=== PATIENT | female | born 1965 | race Caucasian/White ===

== ENCOUNTER → 2016-11-11 | Outpatient (CLI) | payer BC ==
[~2016-11-11] MED LIST: MELO15TA3 PO
--- NOTE | 2016-11-11 12:47 | MAMMOGRAPHY REPORT ---
BILATERAL DIGITAL SCREENING MAMMOGRAM TOMOSYNTHESIS WITH CAD: 11/11/2016 CLINICAL HISTORY: Routine screening. Patient has no complaints. TECHNIQUE: Breast tomosynthesis in addition to standard 2D mammography was performed. Current study was also evaluated with a Computer Aided Detection (CAD) system. COMPARISON: Comparison is made to exams dated: 11/10/2015 mammogram, 11/07/2014 mammogram, 10/02/2013 mammogram, 09/27/2012 mammogram, 09/22/2011 mammogram, and 09/17/2010 mammogram - [facility] [address]. BREAST COMPOSITION: There are scattered areas of fibroglandular density in both breasts. FINDINGS: No suspicious masses, calcifications, or areas of architectural distortion are noted in e ither breast. There has been no significant interval change compared to prior exams. Scattered bilat eral benign-appearing calcifications are not significantly changed. Small benign intramammary lymph nodes are again seen within bilateral upper outer quadrants. IMPRESSION: ACR BI-RADS CATEGORY 2: BENIGN There is no mammographic evidence of malignancy. A 1 year screening mammogram is recommended. The p atient will receive written notification of the results. Approximately 10% of breast cancers are not detected with mammography. A negative mammographic repor t should not delay biopsy if a clinically suggestive mass is present. Yesenia Padilla M.D. /:11/11/2016 11:05:34 Power Transformer Repairer: Radha Yanes, [facility] letter sent: Normal 1/2 BI-RADS Code: ACR BI-RADS Category 2: Benign
== END | disposition home or self-care (01) ==
LOC: C.MAMM 09:04
PROVIDERS: ATTEND Obstetrics & Gynecology
DX: Z12.31 Encounter for screening mammogram for malignant neoplasm of breast (principal)

== ENCOUNTER → 2017-02-18 | Outpatient (CLI) | payer BC | END | disposition home or self-care (01) | LOC: C.PAPS 13:39 | PROVIDERS: ATTEND Obstetrics & Gynecology | DX: Z01.419 Encounter for gynecological examination (general) (routine) without abnormal findings (principal) ==

== ENCOUNTER → 2017-11-14 | Outpatient (CLI) | payer OTHER ==
--- NOTE | 2017-11-15 13:01 | MAMMOGRAPHY REPORT ---
BILATERAL DIGITAL SCREENING MAMMOGRAM TOMOSYNTHESIS WITH CAD: 11/14/2017 CLINICAL HISTORY: Routine screening. TECHNIQUE: Breast tomosynthesis in addition to standard 2D mammography was performed. Current study was also evaluated with a Computer Aided Detection (CAD) system. COMPARISON: Comparison is made to exams dated: 11/11/2016 mammogram, 11/10/2015 mammogram, 11/07/2014 m ammogram, 10/02/2013 mammogram, 09/27/2012 mammogram, and 09/22/2011 mammogram - [facility]. BREAST COMPOSITION: There are scattered areas of fibroglandular density in both breasts. FINDINGS: There are benign-appearing calcifications in both breasts. Stable intramammary lymph nodes in the right upper outer quadrant. No suspicious mass, architectural distortion or cluster of micro calcifications is seen. IMPRESSION: ACR BI-RADS CATEGORY 1: NEGATIVE There is no mammographic evidence of malignancy. A 1 year screening mammogram is recommended. The pa tient will receive written notification of the results. Approximately 10% of breast cancers are not detected with mammography. A negative mammographic report should not delay biopsy if a clinically suggestive mass is present. Savannah Watts M.D. ay/:11/14/2017 14:39:40 Trench Shovel Operator: Jeannine WILKES(R)(M), [facility] letter sent: Normal 1/2 BI-RADS Code: ACR BI-RADS Category 1: Negative
== END | disposition home or self-care (01) ==
LOC: C.MAMM 09:08
PROVIDERS: ATTEND Obstetrics & Gynecology
DX: Z12.31 Encounter for screening mammogram for malignant neoplasm of breast (principal)

== ENCOUNTER 2018-03-27 15:12 | Inpatient (IN) | payer OTHER ==
[~2018-03-27] VITALS: Ht 152.4 cm; Wt 81.6 kg
[2018-03-27] MEDS ORDERED: SODIUM CHLORIDE 0.9% 1000ML 1,000 ML IV STA (16:30)
[2018-03-27] MEDS ORDERED: ONDANSETRON INJ 2 MG/ML 2 ML VIAL IV STA (16:30)
[2018-03-27] MEDS ORDERED: MoRPHine SULFATE 4 MG/ML 1 ML CARP\\VIAL IV STA ×2 (16:30→18:13)
[2018-03-27] MEDS ORDERED: RANITIDINE HCL 50 MG/100 ML D5W IV STA (16:50)
[2018-03-27 17:04] LABS: BASO % 0.2 %; BASO ABS # 0.02 K/uL (0-0.2); EOS % 0.5 %; EOS ABS # 0.05 K/uL (0-0.5); HEMATOCRIT 38.7 % (37-47); HEMOGLOBIN 14.1 g/dL (12.0-16.0); IG# 0.03 K/uL (0.00-0.02); LYMPH % 9.2 %; LYMPH ABS # 0.86 K/uL (1.2-3.4); MEAN CELL VOLUME 83.8 fL (80-100); MEAN CORPUSCULAR HEMOGLOBIN 30.5 pg (25-34); MEAN CORPUSCULAR HGB CONC 36.4 g/dl (32-36); MEAN PLATELET VOLUME 10.2 fL (7.4-10.4); MONO % 7.8 %; MONO ABS # 0.73 K/uL (0.11-0.59); NEUT ABS # 7.63 K/uL (1.4-6.5); PLATELET COUNT 255 K/uL (130-400); RED CELL DISTRIBUTION WIDTH SD 39.1 fL (36.4-46.3); WHITE BLOOD COUNT 9.32 K/uL (4.8-10.8)
[2018-03-27 17:17] LABS: PTT PATIENT 25.3 SECONDS (21.0-31.0)
[2018-03-27 17:22] LABS: ALBUMIN 4.2 gm/dl (3.4-5.0); ALKALINE PHOSPHATASE 47 U/L (45-117); ALT/SGPT 51 U/L (12-78); AST/SGOT 32 U/L (15-37); BLOOD UREA NITROGEN 10 mg/dl (7-18); CALCIUM 9.8 mg/dl (8.5-10.1); CARBON DIOXIDE 23 mmol/L (21-32); CREATININE 1.11 mg/dl (0.60-1.20); GLUCOSE 115 mg/dl (70-99); LIPASE 56 U/L (73-393); POTASSIUM 3.8 mmol/L (3.5-5.1); SODIUM 127 mmol/L (136-145); TOTAL PROTEIN 7.7 gm/dl (6.4-8.2)
[2018-03-27] MEDS ORDERED: PRDXLUD MT (17:25)
[2018-03-27] MEDS ORDERED: LEVO50TA6 PO (17:25)
[2018-03-27] MEDS ORDERED: [UNRECOGNIZED DRUG - OTHER] PO (17:25)
[2018-03-27] MEDS ORDERED: CHOL400T (17:25)
[2018-03-27] MEDS ORDERED: [UNRECOGNIZED DRUG - OTHER] OPR (17:25)
[2018-03-27] MEDS ORDERED: HYDR-5688 PO (17:25)
[2018-03-27] MEDS ORDERED: THIA100T10 PO (17:25)
[2018-03-27] MEDS ORDERED: OMEG10007 PO (17:25)
[2018-03-27] MEDS ORDERED: [UNRECOGNIZED DRUG - CODE] OPR (17:25)
[2018-03-27] MEDS ORDERED: CYCL1SOL OPR (17:25)
[2018-03-27] MEDS ORDERED: IBUP-103 PO (17:25)
[2018-03-27] MEDS ORDERED: CYCL0.052 OPL (17:25)
[2018-03-27] MEDS ORDERED: BISA-16 PO (17:25)
[2018-03-27] MEDS ORDERED: IBUP-1277 PO (17:28)
[2018-03-27] MEDS ORDERED: VITAMIN D PO (17:36)
[2018-03-27] MEDS ORDERED: VITAMIN B PO (17:36)
--- NOTE | 2018-03-27 17:47 | DIAGNOSTIC IMAGING REPORT ---
CHEST ONE VIEW PORTABLE CLINICAL HISTORY: CHEST PAIN dyspnea COMPARISON STUDY: No previous studies for comparison. FINDINGS: The bones soft tissues and hemidiaphragms are normal. The cardiomediastinal silhouette is normal. The lungs are clear. The pulmonary vasculature is normal. IMPRESSION: Negative chest. The above report was generated using voice recognition software. It may contain grammatical, syntax or spelling errors. Electronically signed by: Kostas Prieto M.D. 03/27/2018 5:46 PM Dictated Date/Time: 03/27/2018 5:46 PM
[2018-03-27] MEDS ORDERED: HYDROmorphone INJ 0.5 MG/0.5 ML SYR IV STA (19:35)
--- NOTE | 2018-03-27 20:45 | DIAGNOSTIC IMAGING REPORT ---
ABDOMEN COMPLETE (US) CLINICAL HISTORY: 53 years-old Female presenting with EPIGASTRIC/UPPER ABD PAIN. TECHNIQUE: Real-time grayscale and limited color Doppler ultrasound imaging of the abdomen was performed. COMPARISON: None. FINDINGS: Pancreas: Visualized portions of the pancreatic head and body normal. Liver: Normal echogenicity and echotexture. The liver measures 16.1 cm in maximal sagittal dimension. No sonographic evidence of hepatic mass. Main portal vein patent with normal directional flow. Biliary: No intrahepatic biliary ductal dilatation. Common bile duct measures up to 4 mm in diameter. Gallbladder: The gallbladder is distended with debris. Gallbladder wall top normal in thickness measuring 3 mm. Trace pericholecystic fluid may be present. Sonographic Dailey's sign positive. Spleen: Normal in echogenicity and size, measuring 11.2 cm in length. Kidneys: Normal in size and echogenicity. Right kidney measures 10.9 cm, and left kidney measures 12.1 cm. No hydronephrosis. Vasculature: Visualized portions of the IVC and abdominal aorta normal. Ascites: None. IMPRESSION: Findings raise concern for acute cholecystitis. This could be confirmed with nuclear medicine HIDA scan if clinically indicated. No biliary ductal dilatation. The report will be called/faxed according to standard departmental protocol. Electronically signed by: Florentin Schafer M.D. 03/27/2018 8:44 PM Dictated Date/Time: 03/27/2018 8:40 PM
--- NOTE | 2018-03-27 23:15 | Medical Consult ---
Consultation Date of Consultation: Mar 27, 2018. Attending Physician: Reason for Consultation: Abdominal pain History of Present Illness 53-year-old female presented to the emergency department with epigastric and right upper quadrant abdominal pain started early this morning. She is currently being treated for an amoebic I infection and was recommended to eat a high fat diet. She started having some mild discomfort over the past 1-2 days. The pain became severe this morning and woke her from sleep. She had associated nausea. No similar episodes in the past. The pain radiates to her back. Past Medical/Surgical History Eye infection Abdominal pain Hypothyroidism Possible acute cholecystitis Hyponatremia Social History Smoking Status: Never Smoker Allergies Coded Allergies: Amoxicillin (Unverified Allergy, Unknown, RASH, 03/27/18) Codeine (Unverified Adverse Reaction, Unknown, GI SYMPTOMS, 03/27/18) Home Medications Active Reported [Vitamin D3 Tab] 1 Tab PO QAM [Vitamin B12 Tabs] 1 Tab PO QAM Advil (Ibuprofen) 200 Mg Tab 200 Mg PO UD [Propamidine 1% Eye ] 1 Drop OPR Q2H Advil (Ibuprofen) 200 Mg Tab 200 Mg PO UD Dulcolax (Bisacodyl) 5 Mg Tab 2 Tab PO UD [place]-3 (Fish Oil) 1 Ea Cap 1 Cap PO QAM Restasis (Cyclosporine (Ophth)) 0.05 % Emu 1 Drop OPL BID Levothyroxine Sodium 50 Mcg Tab 1 Tab PO QAM Alvin 5MG/325MG (Acetaminophen/Hydrocodone Bitart) Tab 1-2 Tablets PO Q4- 6HOURS PRN PRN PAIN Neomycin/Polymyxin/Gramic (Wideqeth-Lhjkpg-Sdbqdqyk) 1 Tami Tami 1 Drop OPR QID Cyclopentolate Hcl 1 % Tami 1 Drop OPR QID Peridex Oral Soln (Chlorhexidine Gluconate) 480 Ml Soln 1 Drop MT Q2H [Miltefosine] 50 Mg PO TID Review of Systems 10 point review of systems negative except as above Physical Exam Date Time Temp Pulse Resp B/P (MAP) Pulse Ox O2 Delivery O2 Flow Rate FiO2 03/27/18 19:46 69 16 198/96 94 Room Air 03/27/18 18:23 66 18 163/98 100 Room Air 03/27/18 17:24 65 18 189/104 100 Room Air 03/27/18 17:06 67 03/27/18 16:57 67 18 169/108 100 Room Air 03/27/18 16:55 100 Room Air 03/27/18 16:55 Room Air 03/27/18 15:24 36.6 71 20 170/96 100 Room Air 03/27/18 15:24 100 Room Air General Appearance: WD/WN, + mild distress Head: normocephalic, atraumatic Eyes: EOMI, + pertinent finding (Right lid slightly draped and inflamed) ENT: normal ENT inspection, hearing grossly normal Neck: supple, no adenopathy, no JVD Respiratory/Chest: chest non-tender, lungs clear, normal breath sounds, no respiratory distress Cardiovascular: regular rate, rhythm, no edema, no gallop, no JVD, no murmur Abdomen/GI: normal bowel sounds, soft, no organomegaly, no pulsatile mass, + tenderness (Tender to palpation in the right upper quadrant positive Dailey sign ) Back: normal inspection, no CVA tenderness Extremities/Musculoskelatal: normal inspection, no calf tenderness, normal capillary refill, no pedal edema, normal range of motion Neurologic/Psych: 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, no motor/sensory deficits, alert, normal mood/affect, oriented x 3 Skin: normal color, warm/dry, no rash Lymphatic: no adenopathy Laboratory Results Last 24 Hours Test 03/27/18 16:45 03/27/18 19:30 03/27/18 22:59 White Blood Count 9.32 K/uL Red Blood Count 4.62 M/uL Hemoglobin 14.1 g/dL Hematocrit 38.7 % Mean Corpuscular Volume 83.8 fL Mean Corpuscular Hemoglobin 30.5 pg Mean Corpuscular Hemoglobin Concent 36.4 g/dl Platelet Count 255 K/uL Mean Platelet Volume 10.2 fL Neutrophils (%) (Auto) 82.0 % Lymphocytes (%) (Auto) 9.2 % Monocytes (%) (Auto) 7.8 % Eosinophils (%) (Auto) 0.5 % Basophils (%) (Auto) 0.2 % Neutrophils # (Auto) 7.63 K/uL Lymphocytes # (Auto) 0.86 K/uL Monocytes # (Auto) 0.73 K/uL Eosinophils # (Auto) 0.05 K/uL Basophils # (Auto) 0.02 K/uL RDW Standard Deviation 39.1 fL RDW Coefficient of Variation 13.0 % Immature Granulocyte % (Auto) 0.3 % Immature Granulocyte # (Auto) 0.03 K/uL Prothrombin Time 10.2 SECONDS Prothromb Time International Ratio 1.0 Activated Partial Thromboplast Time 25.3 SECONDS Partial Thromboplastin Ratio 1.0 D-Dimer 380 ug/L FEU Sodium Level 127 mmol/L Potassium Level 3.8 mmol/L Chloride Level 93 mmol/L Carbon Dioxide Level 23 mmol/L Anion Gap 11.0 mmol/L Blood Urea Nitrogen 10 mg/dl Creatinine 1.11 mg/dl Est Creatinine Clear Calc Drug Dose 53.6 ml/min Estimated GFR () 64.7 Estimated GFR (Non- 55.9 BUN/Creatinine Ratio 8.8 Random Glucose 115 mg/dl Calcium Level 9.8 mg/dl Total Bilirubin 0.9 mg/dl Direct Bilirubin 0.2 mg/dl Aspartate Amino Transf (AST/SGOT) 32 U/L Alanine Aminotransferase (ALT/SGPT) 51 U/L Alkaline Phosphatase 47 U/L Total Creatine Kinase 77 U/L Troponin I < 0.015 ng/ml < 0.015 ng/ml Total Protein 7.7 gm/dl Albumin 4.2 gm/dl Lipase 56 U/L ABDOMEN COMPLETE (US) CLINICAL HISTORY: 53 years-old Female presenting with EPIGASTRIC/UPPER ABD PAIN. TECHNIQUE: Real-time grayscale and limited color Doppler ultrasound imaging of the abdomen was performed. COMPARISON: None. FINDINGS: Pancreas: Visualized portions of the pancreatic head and body normal. Liver: Normal echogenicity and echotexture. The liver measures 16.1 cm in maximal sagittal dimension. No sonographic evidence of hepatic mass. Main portal vein patent with normal directional flow. Biliary: No intrahepatic biliary ductal dilatation. Common bile duct measures up to 4 mm in diameter. Gallbladder: The gallbladder is distended with debris. Gallbladder wall top normal in thickness measuring 3 mm. Trace pericholecystic fluid may be present. Sonographic Dailey's sign positive. Spleen: Normal in echogenicity and size, measuring 11.2 cm in length. Kidneys: Normal in size and echogenicity. Right kidney measures 10.9 cm, and left kidney measures 12.1 cm. No hydronephrosis. Vasculature: Visualized portions of the IVC and abdominal aorta normal. Ascites: None. IMPRESSION: Findings raise concern for acute cholecystitis. This could be confirmed with nuclear medicine HIDA scan if clinically indicated. No biliary ductal dilatation. The report will be called/faxed according to standard departmental protocol. Assessment & Plan 53-year-old female with likely acute cholecystitis. She currently has hypertension, and hyponatremia we recommend admission to the medical service for preop risk assessment and medical optimization prior to any surgical intervention. We will reassess in the morning and likely plan for laparoscopic cholecystectomy with possible cholangiogram tomorrow. Recommend medical admission Plan for likely laparoscopic cholecystectomy with possible cholangiogram tomorrow Risks were discussed to include but not limited to bleeding, infection, conversion to open, damage to surrounding structures including common bile duct , need for future more extensive surgery, failure to treat symptoms, retained stone, bile leak, and the risks of anesthesia Recommend antibiotics, clear liquids until midnight, n.p.o. after midnight with IV fluids Plan of care as discussed the patient, all questions were answered, the patient expressed understanding agrees the plan of care as stated.
[2018-03-28] VITALS (7 sets, daily range): BP systolic 128–179; BP diastolic 79–108; PULSE 58–90; TEMP 36.5–36.9; O2SAT 96–99; Ht 152.4 cm; Wt 81.6 kg
[2018-03-28] MEDS ORDERED: POLYETHYLENE (MIRALAX) 17 GM PACK PO PRN
[2018-03-28] MEDS ORDERED: ACETAMINOPHEN 325 MG TAB PO PRN
[2018-03-28] MEDS ORDERED: ALUMINUM/MAGNESIUM/SIMETH (MAALOX MAX) 30 ML UDC PO PRN
[2018-03-28] MEDS ORDERED: MAGNESIUM HYDROXIDE SUSP 30 ML UDC PO PRN
--- NOTE | 2018-03-28 00:12 | EMERGENCY ROOM VISIT NOTE ---
History First contact with patient: 16:20 Chief Complaint: CHEST PAIN Stated Complaint: CHEST PAIN Nursing Triage Summary: Pt thought she had indigestion at 4am, "Alexandra been playing with it all day." CP has worsened in the last 4 hours. Denies cardiac history. Pain radiates into back. History of Present Illness The patient is a 53 year old female who presents to the Emergency Room with complaints of epigastric pain that awakened her at 4 AM this morning. The patient reports nausea without vomiting. She describes it as a constant pain that radiates into the back. It is not a tearing sensation. She denies any pain extending into the chest or lower abdomen. She has not noticed any melanotic or bloody stools. She denies history of GI disease. She is status post appendectomy. She denies any prior history of gallbladder disease or pancreatitis. She does have a prior history of GERD, but reports that this pain feels different. 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 She has been taking Impavido, and antiparasitic medication for the past 4 weeks. She reports that her gas station operator, Dr. Cruz, did recently check some labs that were normal. She rates her discomfort a 10 out of 10 on my exam. Review of Systems HEENT: Denies dizziness, visual problems, hearing loss, tinnitus. Denies difficulty swallowing or oral lesions. PULMONARY: Denies cough, shortness of breath, sputum production or hemoptysis. CARDIOVASCULAR: Denies chest pain, palpitations, dyspnea on exertion, orthopnea or peripheral edema. GASTROINTESTINAL: Denies diarrhea, constipation or vomiting, otherwise see HPI. GENITOURINARY: Denies dysuria, frequency, urgency or nocturia. NEUROLOGIC: Denies history of epilepsy, CVA, TIA or chronic headaches. MUSCULOSKELETAL: Denies history of joint tenderness/swelling. SKIN: Denies rashes or lesions. PSYCHIATRIC: Denies history of depression or mental illness. ENDOCRINE: Denies history of diabetes or thyroid disorders. 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 Family History Unremarkable Social History Smoking Status: Never Smoker Alcohol Use: none Marital Status: Occupation Status: employed Current/Historical Medications Scheduled Bisacodyl (Dulcolax), 2 TAB PO UD Chlorhexidine Gluconate (Peridex Oral Soln), 1 DROP MT Q2H Cyclopentolate Hcl (Cyclopentolate Hcl), 1 DROP OPR QID Cyclosporine (Ophth) (Restasis), 1 DROP OPL BID Fish Oil ([place]-3), 1 CAP PO QAM Ibuprofen (Advil), 200 MG PO UD Ibuprofen Tab (Advil), 200 MG PO UD Levothyroxine Sodium (Levothyroxine Sodium), 1 TAB PO QAM Pgdmsyzk-Jsgvmt-Komnloqj (Neomycin/Polymyxin/Gramic), 1 DROP OPR QID [Miltefosine], 50 MG PO TID [Propamidine 1% Eye ], 1 DROP OPR Q2H [Vitamin B12 Tabs], 1 TAB PO QAM [Vitamin D3 Tab], 1 TAB PO QAM Scheduled PRN Hydrocodone/Acetaminophen 5MG/325MG ([place] 5MG/325MG), 1-2 TABLETS PO Q4-6HOURS PRN for Pain Physical Exam Vital Signs Date Time Temp Pulse Resp B/P (MAP) Pulse Ox O2 Delivery O2 Flow Rate FiO2 03/27/18 23:04 172/97 03/27/18 23:00 83 20 03/27/18 22:31 181/100 03/27/18 22:30 77 98 03/27/18 22:01 159/105 03/27/18 22:00 81 99 03/27/18 21:31 164/101 03/27/18 21:30 71 97 03/27/18 21:01 183/102 03/27/18 21:00 76 97 03/27/18 20:52 172/101 03/27/18 19:46 69 16 198/96 94 Room Air 03/27/18 18:23 66 18 163/98 100 Room Air 03/27/18 17:24 65 18 189/104 100 Room Air 03/27/18 17:06 67 03/27/18 16:57 67 18 169/108 100 Room Air 03/27/18 16:55 100 Room Air 03/27/18 16:55 Room Air 03/27/18 15:24 36.6 71 20 170/96 100 Room Air 03/27/18 15:24 100 Room Air Physical Exam CONSTITUTIONAL: Healthy and well nourished. Alert and oriented X 3 with positive affect. Patient appears in moderately severe discomfort. HEENT: Normocephalic, atraumatic. Pupils equal, round and reactive. Patient has a right lid lag. No scleral icterus or conjunctival injection. Ears and nares are clear. OROPHARYNX: Mucous membranes are dry. No tonsillar hypertrophy or exudates. NECK: Full active range of motion without discomfort. No JVD or carotid bruits. RESPIRATORY: Clear to auscultation bilaterally with no wheezing, crackles, rhonchi or stridor. CARDIOVASCULAR: Regular rate and rhythm with no murmurs, rubs or gallops. GASTROINTESTINAL: Bowel sounds present in all quadrants. Patient has diffuse epigastric and right upper quadrant tenderness to palpation. No rigidity, guarding or rebound. Negative CVA tenderness. No focal left sided or left lower quadrant tenderness to palpation. MUSCULOSKELETAL: Full range of motion of all joints without discomfort. INTEGUMENTARY: No rash or other significant dermatologic conditions noted. HEMATOLOGIC: No ecchymosis or petechiae. NEUROLOGIC: Cranial nerves II-XII grossly intact. No focal neurologic deficits noted. Medical Decision & Procedures ER Provider Diagnostic Interpretation: My interpretation of an initial ECG shows a sinus rhythm of [address] elevation. Repeat ECG performed 4 hours after the initial ECG continued to show a normal sinus rhythm of [address] elevation or other conduction abnormalities. My interpretation of a portable chest x-ray does not show any consolidations, pneumothorax obvious abdominal free air or widened mediastinum. Radiologist report is as follows: CHEST ONE VIEW PORTABLE CLINICAL HISTORY: CHEST PAIN dyspnea COMPARISON STUDY: No previous studies for comparison. FINDINGS: The bones soft tissues and hemidiaphragms are normal. The cardiomediastinal silhouette is normal. The lungs are clear. The pulmonary vasculature is normal. IMPRESSION: Negative chest. Abdominal ultrasound shows mild pericholecystic fluid and gallbladder wall thickening. Lumen debris is also noted. Common bile duct is normal. Radiologist report is as follows: ABDOMEN COMPLETE (US) CLINICAL HISTORY: 53 years-old Female presenting with EPIGASTRIC/UPPER ABD PAIN. TECHNIQUE: Real-time grayscale and limited color Doppler ultrasound imaging of the abdomen was performed. COMPARISON: None. FINDINGS: Pancreas: Visualized portions of the pancreatic head and body normal. Liver: Normal echogenicity and echotexture. The liver measures 16.1 cm in maximal sagittal dimension. No sonographic evidence of hepatic mass. Main portal vein patent with normal directional flow. Biliary: No intrahepatic biliary ductal dilatation. Common bile duct measures up to 4 mm in diameter. Gallbladder: The gallbladder is distended with debris. Gallbladder wall top normal in thickness measuring 3 mm. Trace pericholecystic fluid may be present. Sonographic Dailey's sign positive. Spleen: Normal in echogenicity and size, measuring 11.2 cm in length. Kidneys: Normal in size and echogenicity. Right kidney measures 10.9 cm, and left kidney measures 12.1 cm. No hydronephrosis. Vasculature: Visualized portions of the IVC and abdominal aorta normal. Ascites: None. IMPRESSION: Findings raise concern for acute cholecystitis. This could be confirmed with nuclear medicine HIDA scan if clinically indicated. No biliary ductal dilatation. Laboratory Results 03/27/18 16:45 Red Blood Count 4.62, Mean Corpuscular Volume 83.8, Mean Corpuscular Hemoglobin 30.5, Mean Corpuscular Hemoglobin Concent 36.4, Mean Platelet Volume 10.2, Neutrophils (%) (Auto) 82.0, Lymphocytes (%) (Auto) 9.2, Monocytes (%) (Auto) 7.8, Eosinophils (%) (Auto) 0.5, Basophils (%) (Auto) 0.2, Neutrophils # (Auto) 7.63, Lymphocytes # (Auto) 0.86, Monocytes # (Auto) 0.73, Eosinophils # (Auto) 0.05, Basophils # (Auto) 0.02 03/27/18 16:45 Test 03/27/18 16:45 03/27/18 19:30 White Blood Count 9.32 K/uL (4.8-10.8) Red Blood Count 4.62 M/uL (4.2-5.4) Hemoglobin 14.1 g/dL (12.0-16.0) Hematocrit 38.7 % (37-47) Mean Corpuscular Volume 83.8 fL (80-100) Mean Corpuscular Hemoglobin 30.5 pg (25-34) Mean Corpuscular Hemoglobin Concent 36.4 g/dl (32-36) Platelet Count 255 K/uL (130-400) Mean Platelet Volume 10.2 fL (7.4-10.4) Neutrophils (%) (Auto) 82.0 % Lymphocytes (%) (Auto) 9.2 % Monocytes (%) (Auto) 7.8 % Eosinophils (%) (Auto) 0.5 % Basophils (%) (Auto) 0.2 % Neutrophils # (Auto) 7.63 K/uL (1.4-6.5) Lymphocytes # (Auto) 0.86 K/uL (1.2-3.4) Monocytes # (Auto) 0.73 K/uL (0.11-0.59) Eosinophils # (Auto) 0.05 K/uL (0-0.5) Basophils # (Auto) 0.02 K/uL (0-0.2) RDW Standard Deviation 39.1 fL (36.4-46.3) RDW Coefficient of Variation 13.0 % (11.5-14.5) Immature Granulocyte % (Auto) 0.3 % Immature Granulocyte # (Auto) 0.03 K/uL (0.00-0.02) Prothrombin Time 10.2 SECONDS (9.0-12.0) Prothromb Time International Ratio 1.0 (0.9-1.1) Activated Partial Thromboplast Time 25.3 SECONDS (21.0-31.0) Partial Thromboplastin Ratio 1.0 D-Dimer 380 ug/L FEU (0-500) Anion Gap 11.0 mmol/L (3-11) Est Creatinine Clear Calc Drug Dose 53.6 ml/min Estimated GFR () 64.7 Estimated GFR (Non- 55.9 BUN/Creatinine Ratio 8.8 (10-20) Osmolality 269 mOsm/kg (280-300) Calcium Level 9.8 mg/dl (8.5-10.1) Total Bilirubin 0.9 mg/dl (0.2-1) Direct Bilirubin 0.2 mg/dl (0-0.2) Aspartate Amino Transf (AST/SGOT) 32 U/L (15-37) Alanine Aminotransferase (ALT/SGPT) 51 U/L (12-78) Alkaline Phosphatase 47 U/L (45-117) Total Creatine Kinase 77 U/L (26-192) Total Protein 7.7 gm/dl (6.4-8.2) Albumin 4.2 gm/dl (3.4-5.0) Lipase 56 U/L (73-393) Troponin I < 0.015 ng/ml (0-0.045) The above labs were reviewed. Sodium is 127. Patient has no leukocytosis. Lipase and troponin 2 were normal. LFTs and lipase are normal. D-dimer is normal. Medications Administered Medications (Trade) Dose Ordered Sig/Raisa Route Start Time Stop Time Status Last Admin Dose Admin Sodium Chloride 1,000 ml @ 999 mls/hr Q1H1M STAT IV 03/27/18 16:30 03/27/18 17:30 DC 03/27/18 16:52 999 MLS/HR Morphine Sulfate (MoRPHine SULFATE INJ) 4 mg NOW STAT IV 03/27/18 16:30 03/27/18 16:33 DC 03/27/18 16:52 4 MG Ondansetron HCl (Zofran Inj) 4 mg NOW STAT IV 03/27/18 16:30 03/27/18 16:33 DC 03/27/18 16:52 4 MG Ranitidine HCl (zANTac IV) 50 mg NOW STAT IV 03/27/18 16:50 03/27/18 16:51 DC 03/27/18 17:22 50 MG Morphine Sulfate (MoRPHine SULFATE INJ) 4 mg NOW STAT IV 03/27/18 18:13 03/27/18 18:14 DC 03/27/18 18:22 4 MG Hydromorphone HCl (Dilaudid Inj) 0.5 mg NOW STAT IV 03/27/18 19:35 03/27/18 19:36 DC 03/27/18 19:45 0.5 MG Procedure 1. IV hydration: The patient was administered a normal saline 1 L bolus 2. IV medications: The patient was initially administered morphine 4 mg, Zofran 4 mg and Zantac 50 mg IVP. This did not provide much relief, and the patient was administered an additional morphine 4 mg IVP. With recurring pain, the patient was then administered Dilaudid 0.5 mg IVP. She refused any antiemetics. ED Course Patient history and physical exam were performed. Nurse's notes were reviewed. Vital signs were reviewed and were normal. The patient appeared in severe distress on initial exam. IV access was established, and labs were drawn. ECG and portable chest x-ray were normal. Labs were reviewed to show a hyponatremia. Otherwise she has no leukocytosis. Hyponatremia is noted. The patient was unable to provide a urine sample. ECG and troponin were to repeated 4 hours apart without any changes. D-dimer was also normal. LFTs and lipase are normal. At this point, abdominal ultrasound was ordered to show evidence for possible acute cholecystitis. The patient did require several rounds of morphine and Dilaudid for pain, and was still in significant discomfort with nausea. I did discuss ultrasound results with the patient and . I did explain some of the triggers for biliary colic. The reports that their gas station operator suggested that she eat a high fat diet with the medications that she is taking for her Acanthamoeba eye infection. The case was further discussed with Dr. Mireles, ED attending physician, who agrees with workup and suggest a consultation with the hospitalist service and Dr. Schulz, general surgeon sales commissions analyst. The case was discussed with Dr. Schulz , who reviewed ultrasound and laboratory findings, and suggested hospitalist admission. They did come to the emergency department and evaluated the patient , suggesting surgical management tomorrow with hospitalist evaluation of hyponatremia. Please see their dictations for further treatment and final disposition. Medical Decision Patient presents to the emergency department with complaint of severe epigastric and right upper quadrant pain. Her labs are showing a hyponatremia without evidence for elevated liver transaminases or lipase. ECG, chest x-ray and cardiac enzymes were normal, with repeat of ECG and enzymes 4 hours apart. I do not suspect myocardial infarction. Chest ray does not suggest pneumothorax or pneumonia. D-dimer is normal, therefore I do not feel the pulmonary embolus is likely. Ultrasound does show evidence for pericholecystic fluid and debris within the gallbladder, with findings concerning for acute cholecystitis. HIDA scan was recommended for confirmation. Surgical intervention with cholangiogram is currently being planned for tomorrow. The patient was unable to provide a urine sample to rule out urinary tract etiology , although I do not suspect renal colic or pyelonephritis. [place] Drug Monitoring Program Search Results: patient reviewed within database, no issues identified Medication Reconcilliation Current Medication List: was personally reviewed by me Blood Pressure Screening Patient's blood pressure: Normal blood pressure Impression Primary Impression: Epigastric abdominal pain Additional Impression: Hyponatremia Departure Information Referrals Colton Leonard M.D. (PCP) Patient Instructions [facility] Problem Qualifiers
--- NOTE | 2018-03-28 00:29 | History and Physical ---
History & Physical Date & Time of Service: Mar 28, 2018 at 00:12 Chief Complaint: Chest Pain Primary Care Physician: Colton Leonard M.D. History of Present Illness Source: patient, hospital records Patient is a 53 year old female with a PMH of hypothyroidism that presented to [facility] with abdominal pain and vomiting She says her abdominal pain started at 4am and woke her from her sleep. It is located in her upper abdomen and now she feels it is worst in her RUQ. She says it is a sharp pain that comes and goes. She rates it as a 9/10 in severity. It has been associated with vomiting and nausea. She has had the pain ever since then therefore she came to the emergency department. She notes she has had chills but no fevers. She denies any dysuria, diarrhea, blood in her stool. She has been eating a high fat diet recently due to a medication she is taking for an ameobic infection in her R eye. She has never had biliary colic prior to this episode. 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 Surgical Problems: (1) History of appendectomy Family History No family hx of cholecystitis Social History Smoking Status: Never Smoker Smokeless Tobacco Use: No Alcohol Use: occasionally Drug Use: none Marital Status: Housing status: lives with family Immunizations History of Influenza Vaccine: Unknown History of Tetanus Vaccine?: Unknown History of Pneumococcal: Unknown History of Hepatitis B Vaccine: Unknown Allergies Coded Allergies: Amoxicillin (Unverified Allergy, Unknown, RASH, 03/27/18) Codeine (Unverified Adverse Reaction, Unknown, GI SYMPTOMS, 03/27/18) Home Medications Scheduled Bisacodyl (Dulcolax), 2 TAB PO UD Chlorhexidine Gluconate (Peridex Oral Soln), 1 DROP MT Q2H Cyclopentolate Hcl (Cyclopentolate Hcl), 1 DROP OPR QID Cyclosporine (Ophth) (Restasis), 1 DROP OPL BID Fish Oil ([place]-3), 1 CAP PO QAM Ibuprofen (Advil), 200 MG PO UD Ibuprofen Tab (Advil), 200 MG PO UD Levothyroxine Sodium (Levothyroxine Sodium), 1 TAB PO QAM Hwafgmea-Bphhdu-Wacustvw (Neomycin/Polymyxin/Gramic), 1 DROP OPR QID [Miltefosine], 50 MG PO TID [Propamidine 1% Eye ], 1 DROP OPR Q2H [Vitamin B12 Tabs], 1 TAB PO QAM [Vitamin D3 Tab], 1 TAB PO QAM Scheduled PRN Hydrocodone/Acetaminophen 5MG/325MG ([place] 5MG/325MG), 1-2 TABLETS PO Q4-6HOURS PRN for Pain Review of Systems 10 systems were reviewed and negative except as noted in the HPI Physical Exam Vital Signs Date Time Temp Pulse Resp B/P (MAP) Pulse Ox O2 Delivery O2 Flow Rate FiO2 03/27/18 23:04 172/97 03/27/18 23:00 83 20 03/27/18 22:31 181/100 03/27/18 22:30 77 98 03/27/18 22:01 159/105 03/27/18 22:00 81 99 03/27/18 21:31 164/101 03/27/18 21:30 71 97 03/27/18 21:01 183/102 03/27/18 21:00 76 97 03/27/18 20:52 172/101 03/27/18 19:46 69 16 198/96 94 Room Air 03/27/18 18:23 66 18 163/98 100 Room Air 03/27/18 17:24 65 18 189/104 100 Room Air 03/27/18 17:06 67 03/27/18 16:57 67 18 169/108 100 Room Air 03/27/18 16:55 100 Room Air 03/27/18 16:55 Room Air 03/27/18 15:24 36.6 71 20 170/96 100 Room Air 03/27/18 15:24 100 Room Air General Appearance: + mild distress Eyes: + pertinent finding (R eye closed shut due to infection) ENT: hearing grossly normal, pharynx normal, + pertinent finding (dry mucous membranes) Neck: supple, no JVD Respiratory/Chest: lungs clear, no respiratory distress, no accessory muscle use Cardiovascular: regular rate, rhythm, no murmur, normal peripheral pulses Abdomen/GI: normal bowel sounds, + tenderness (very tender throughout, worst in the RUQ) Back: normal inspection, no muscle spasm Extremities/Musculoskelatal: normal inspection, no calf tenderness, no pedal edema Neurologic/Psych: alert, normal mood/affect, oriented x 3 Skin: normal color, no rash Diagnostics Laboratory Results Results Past 24 Hours Test 03/27/18 16:45 03/27/18 19:30 Range/Units White Blood Count 9.32 4.8-10.8 K/uL Red Blood Count 4.62 4.2-5.4 M/uL Hemoglobin 14.1 12.0-16.0 g/dL Hematocrit 38.7 37-47 % Mean Corpuscular Volume 83.8 80-100 fL Mean Corpuscular Hemoglobin 30.5 25-34 pg Mean Corpuscular Hemoglobin Concent 36.4 32-36 g/dl Platelet Count 255 130-400 K/uL Mean Platelet Volume 10.2 7.4-10.4 fL Neutrophils (%) (Auto) 82.0 % Lymphocytes (%) (Auto) 9.2 % Monocytes (%) (Auto) 7.8 % Eosinophils (%) (Auto) 0.5 % Basophils (%) (Auto) 0.2 % Neutrophils # (Auto) 7.63 1.4-6.5 K/uL Lymphocytes # (Auto) 0.86 1.2-3.4 K/uL Monocytes # (Auto) 0.73 0.11-0.59 K/uL Eosinophils # (Auto) 0.05 0-0.5 K/uL Basophils # (Auto) 0.02 0-0.2 K/uL RDW Standard Deviation 39.1 36.4-46.3 fL RDW Coefficient of Variation 13.0 11.5-14.5 % Immature Granulocyte % (Auto) 0.3 % Immature Granulocyte # (Auto) 0.03 0.00-0.02 K/uL Prothrombin Time 10.2 9.0-12.0 SECONDS Prothromb Time International Ratio 1.0 0.9-1.1 Activated Partial Thromboplast Time 25.3 21.0-31.0 SECONDS Partial Thromboplastin Ratio 1.0 D-Dimer 380 0-500 ug/L FEU Sodium Level 127 136-145 mmol/L Potassium Level 3.8 3.5-5.1 mmol/L Chloride Level 93 98-107 mmol/L Carbon Dioxide Level 23 21-32 mmol/L Anion Gap 11.0 3-11 mmol/L Blood Urea Nitrogen 10 7-18 mg/dl Creatinine 1.11 0.60-1.20 mg/dl Est Creatinine Clear Calc Drug Dose 53.6 ml/min Estimated GFR () 64.7 Estimated GFR (Non- 55.9 BUN/Creatinine Ratio 8.8 10-20 Random Glucose 115 70-99 mg/dl Osmolality 269 280-300 mOsm/kg Calcium Level 9.8 8.5-10.1 mg/dl Total Bilirubin 0.9 0.2-1 mg/dl Direct Bilirubin 0.2 0-0.2 mg/dl Aspartate Amino Transf (AST/SGOT) 32 15-37 U/L Alanine Aminotransferase (ALT/SGPT) 51 12-78 U/L Alkaline Phosphatase 47 45-117 U/L Total Creatine Kinase 77 26-192 U/L Troponin I < 0.015 < 0.015 0-0.045 ng/ml Total Protein 7.7 6.4-8.2 gm/dl Albumin 4.2 3.4-5.0 gm/dl Lipase 56 73-393 U/L Diagnostic Radiology [~ rep ct add3]] ABDOMEN COMPLETE (US) CLINICAL HISTORY: 53 years-old Female presenting with EPIGASTRIC/UPPER ABD PAIN. TECHNIQUE: Real-time grayscale and limited color Doppler ultrasound imaging of the abdomen was performed. COMPARISON: None. FINDINGS: Pancreas: Visualized portions of the pancreatic head and body normal. Liver: Normal echogenicity and echotexture. The liver measures 16.1 cm in maximal sagittal dimension. No sonographic evidence of hepatic mass. Main portal vein patent with normal directional flow. Biliary: No intrahepatic biliary ductal dilatation. Common bile duct measures up to 4 mm in diameter. Gallbladder: The gallbladder is distended with debris. Gallbladder wall top normal in thickness measuring 3 mm. Trace pericholecystic fluid may be present. Sonographic Dailey's sign positive. Spleen: Normal in echogenicity and size, measuring 11.2 cm in length. Kidneys: Normal in size and echogenicity. Right kidney measures 10.9 cm, and left kidney measures 12.1 cm. No hydronephrosis. Vasculature: Visualized portions of the IVC and abdominal aorta normal. Ascites: None. IMPRESSION: Findings raise concern for acute cholecystitis. This could be confirmed with nuclear medicine HIDA scan if clinically indicated. No biliary ductal dilatation. Impression Assessment and Plan 53 year old female with a PMH of Hypothyroidism that presented to [facility] with abdominal pain and was found to have acute cholecystitis Acute cholecystitis - General surgery to take patient for surgery in the AM - NPO after midnight - NS IV maintenance fluids - IV cipro bid for Abx coverage - Zofran 4mg q6prn nausea - Pantoprazole 40mg IV push daily Hypovolemic Hyponatremia - likely secondary to dehydration from nausea and vomiting - decrease serum osmolality - IV NS maintenance - continue to monitor Hypothyroidism - continue levothyroxine R eye amoeba infection - continue eye drops and miltefosine - will need to send miltefosine down to pharmacy as we don't carry it here DVT prophylaxis - scd's as going for surgery in the AM Full Code Attending addendum: I have physically seen this patient, have supervised the medical residents activities, and agree with the H&P unless as otherwise noted. Assessment and Plan: Acute cholecystitis-- NPO except essential medications. Cipro 400 mg IV twice daily. NSS + KCl 20 mEq 80 mils per hour. Pantoprazole 40 mg IV daily. Zofran 4 mg IV every 6 hours as needed General surgery consult. Hyponatremia with hypoosmolality-- Sodium 127, serum osmolality 269. Urine osmolality pending. Gentle hydration as above. Serial BMP, serum osmolality and magnesium levels. 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 Hypothyroidism-- Continue levothyroxine sodium 50 mcg every morning. Advanced Directives Existing Advance Directive: No Existing Living Will: No Existing Power of Carbon Lamp Cleaner: No Resuscitation Status VTE Prophylaxis Will order VTE Prophylaxis: Yes Social Service Consult None Apply
[2018-03-28] MEDS ORDERED: MoRPHine SULFATE 4 MG/ML 1 ML CARP\\VIAL ONE (01:05)
[2018-03-28] MEDS ORDERED: HYDROmorphone INJ 1 MG/ML SYR IV STA (02:20)
[2018-03-28] MEDS: SODIUM CHLORIDE 0.9% 1000ML 1,000 ML IV SCH ×3 (03:15→20:40)
[2018-03-28] MEDS: CIPROFLOXACIN / D5W 400 MG in PREMIXED IN D5W 200 ML IV SCH ×2 (03:15→14:08)
[2018-03-28] MEDS: PANTOprazole INJ 40 MG in SYRINGE 0 ML IV SCH ×2 (03:16→10:06)
[2018-03-28] MEDS: CHLORHEXIDINE OP SCH ×7 (05:48→19:16)
[2018-03-28] MEDS: LEVOTHYROXINE 50 MCG TAB PO SCH (05:48)
[2018-03-28] MEDS: [UNRECOGNIZED DRUG - OTHER] OP SCH ×7 (05:48→19:16)
[2018-03-28 06:32] LABS: BASO % 0.2 %; BASO ABS # 0.02 K/uL (0-0.2); EOS % 0.1 %; EOS ABS # 0.01 K/uL (0-0.5); HEMATOCRIT 38.2 % (37-47); HEMOGLOBIN 13.4 g/dL (12.0-16.0); IG# 0.11 K/uL (0.00-0.02); LYMPH % 4.2 %; LYMPH ABS # 0.49 K/uL (1.2-3.4); MEAN CORPUSCULAR HEMOGLOBIN 30.2 pg (25-34); MEAN CORPUSCULAR HGB CONC 35.1 g/dl (32-36); MEAN PLATELET VOLUME 10.3 fL (7.4-10.4); MONO % 12.7 %; MONO ABS # 1.47 K/uL (0.11-0.59); NEUT % 81.8 %; NEUT ABS # 9.43 K/uL (1.4-6.5); PLATELET COUNT 227 K/uL (130-400); RED CELL DISTRIBUTION WIDTH CV 13.6 % (11.5-14.5); RED CELL DISTRIBUTION WIDTH SD 42.7 fL (36.4-46.3); WHITE BLOOD COUNT 11.53 K/uL (4.8-10.8)
[2018-03-28 07:09] LABS: ALBUMIN 3.5 gm/dl (3.4-5.0); CALCIUM 8.8 mg/dl (8.5-10.1); CREATININE 1.09 mg/dl (0.60-1.20); POTASSIUM 3.9 mmol/L (3.5-5.1); TOTAL PROTEIN 6.9 gm/dl (6.4-8.2)
[2018-03-28] MEDS: CYCLOPENTOLATE HCL 1% OP SOLN 2 ML BTL OPR SCH ×4 (07:54→17:00)
[2018-03-28] MEDS: [UNRECOGNIZED DRUG - OTHER] PO SCH ×4 (07:54→22:46)
[2018-03-28] MEDS: NEOMYCIN/POLYMYXIN/GRAMICIDIN 10 ML BTL OPR SCH ×4 (07:55→20:41)
[2018-03-28] MEDS: RESTASIS~ORDER AWAITING ACTION SCH ×2 (07:56→13:58)
--- NOTE | 2018-03-28 09:50 | Surgery Progress Note ---
Surgery Progress Note Date of Service Mar 28, 2018. Subjective acute cholecystitis, admitted overnight. Tbili bumped overnight. Pain moderately improved Objective Vital Signs: Date Time Temp Pulse Resp B/P (MAP) Pulse Ox O2 Delivery O2 Flow Rate FiO2 03/28/18 06:39 36.9 71 16 155/93 (113) 96 Room Air 03/28/18 04:35 98 Room Air 03/28/18 03:17 36.9 64 16 145/90 (108) 97 Room Air 03/28/18 01:27 36.5 90 17 170/95 Room Air 03/28/18 01:12 74 15 167/109 98 03/28/18 00:01 74 15 167/109 98 03/27/18 23:04 172/97 03/27/18 23:00 83 20 03/27/18 22:31 181/100 03/27/18 22:30 77 98 03/27/18 22:01 159/105 03/27/18 22:00 81 99 03/27/18 21:31 164/101 03/27/18 21:30 71 97 03/27/18 21:01 183/102 03/27/18 21:00 76 97 03/27/18 20:52 172/101 03/27/18 19:46 69 16 198/96 94 Room Air 03/27/18 18:23 66 18 163/98 100 Room Air 03/27/18 17:24 65 18 189/104 100 Room Air 03/27/18 17:06 67 03/27/18 16:57 67 18 169/108 100 Room Air 03/27/18 16:55 100 Room Air 03/27/18 16:55 Room Air 03/27/18 15:24 36.6 71 20 170/96 100 Room Air 03/27/18 15:24 100 Room Air General Appearance: WD/WN, + moderate distress Abdomen: normal bowel sounds, non distended, soft, + tenderness (RUQ TTP) Laboratory Results: Results Past 24 Hours Test 03/27/18 16:45 03/27/18 19:30 03/28/18 04:06 03/28/18 06:00 Range/Units White Blood Count 9.32 11.53 4.8-10.8 K/uL Red Blood Count 4.62 4.44 4.2-5.4 M/uL Hemoglobin 14.1 13.4 12.0-16.0 g/dL Hematocrit 38.7 38.2 37-47 % Mean Corpuscular Volume 83.8 86.0 80-100 fL Mean Corpuscular Hemoglobin 30.5 30.2 25-34 pg Mean Corpuscular Hemoglobin Concent 36.4 35.1 32-36 g/dl Platelet Count 255 227 130-400 K/uL Mean Platelet Volume 10.2 10.3 7.4-10.4 fL Neutrophils (%) (Auto) 82.0 81.8 % Lymphocytes (%) (Auto) 9.2 4.2 % Monocytes (%) (Auto) 7.8 12.7 % Eosinophils (%) (Auto) 0.5 0.1 % Basophils (%) (Auto) 0.2 0.2 % Neutrophils # (Auto) 7.63 9.43 1.4-6.5 K/uL Lymphocytes # (Auto) 0.86 0.49 1.2-3.4 K/uL Monocytes # (Auto) 0.73 1.47 0.11-0.59 K/uL Eosinophils # (Auto) 0.05 0.01 0-0.5 K/uL Basophils # (Auto) 0.02 0.02 0-0.2 K/uL RDW Standard Deviation 39.1 42.7 36.4-46.3 fL RDW Coefficient of Variation 13.0 13.6 11.5-14.5 % Immature Granulocyte % (Auto) 0.3 1.0 % Immature Granulocyte # (Auto) 0.03 0.11 0.00-0.02 K/uL Prothrombin Time 10.2 9.0-12.0 SECONDS Prothromb Time International Ratio 1.0 0.9-1.1 Activated Partial Thromboplast Time 25.3 21.0-31.0 SECONDS Partial Thromboplastin Ratio 1.0 D-Dimer 380 0-500 ug/L FEU Sodium Level 127 133 136-145 mmol/L Potassium Level 3.8 3.9 3.5-5.1 mmol/L Chloride Level 93 101 98-107 mmol/L Carbon Dioxide Level 23 24 21-32 mmol/L Anion Gap 11.0 8.0 3-11 mmol/L Blood Urea Nitrogen 10 8 7-18 mg/dl Creatinine 1.11 1.09 0.60-1.20 mg/dl Est Creatinine Clear Calc Drug Dose 53.6 54.4 ml/min Estimated GFR () 64.7 66.2 Estimated GFR (Non- 55.9 57.1 BUN/Creatinine Ratio 8.8 7.6 10-20 Random Glucose 115 138 70-99 mg/dl Osmolality 269 280-300 mOsm/kg Calcium Level 9.8 8.8 8.5-10.1 mg/dl Total Bilirubin 0.9 1.8 0.2-1 mg/dl Direct Bilirubin 0.2 0-0.2 mg/dl Aspartate Amino Transf (AST/SGOT) 32 184 15-37 U/L Alanine Aminotransferase (ALT/SGPT) 51 235 12-78 U/L Alkaline Phosphatase 47 81 45-117 U/L Total Creatine Kinase 77 26-192 U/L Troponin I < 0.015 < 0.015 0-0.045 ng/ml Total Protein 7.7 6.9 6.4-8.2 gm/dl Albumin 4.2 3.5 3.4-5.0 gm/dl Lipase 56 73-393 U/L Urine Osmolality 424 500-800 mOms/kg Globulin 3.4 2.5-4.0 gm/dl Albumin/Globulin Ratio 1.0 0.9-2 Hepatitis C Antibody NEG NEG Assessment & Plan likely acute cholecystitis, tbili and lft's elevated this morning, plan for cholangiogram plan for laparoscopic cholecystectomy with possible cholangiogram risks reviewed plan of care reviewed, questions answered, patient agrees with plan patient consented
[2018-03-28] MEDS: MoRPHine SULFATE 4 MG/ML 1 ML CARP\\VIAL IV PRN ×3 (10:00→12:23)
[2018-03-28] MEDS ORDERED: EpHEDrine SULFATE INJ 50 MG/ML AMP IV PRN (10:15)
[2018-03-28] MEDS ORDERED: ATROPINE SULFATE 0.1 MG/ML 5ML SYR IV PRN (10:15)
[2018-03-28] MEDS ORDERED: ONDANSETRON INJ 2 MG/ML 2 ML VIAL IV PRN ×2 (10:15)
[2018-03-28] MEDS ORDERED: MEPERIDINE HCL 25 MG/ML CARP IV PRN (10:15)
[2018-03-28] MEDS ORDERED: FENTANYL CITRATE INJ 50 MCG/1 ML 2 ML VIAL IV PRN (10:15)
[2018-03-28] MEDS ORDERED: HYDROmorphone INJ 0.5 MG/0.5 ML SYR IV PRN (10:15)
[2018-03-28] MEDS ORDERED: CONRAY 60% 50 ML VIAL ONE (10:29)
[2018-03-28] MEDS ORDERED: BUPIVACAINE 0.25% 30 ML VIAL ONE (10:29)
[2018-03-28] MEDS ORDERED: FENTANYL CITRATE INJ 50 MCG/1 ML 2 ML VIAL ONE ×3 (10:34→12:18)
[2018-03-28] MEDS ORDERED: MIDAZOLAM HCL 1 MG/ML 2ML VIAL ONE (10:34)
[2018-03-28] MEDS ORDERED: DEXAMETHASONE SOD INJ 4 MG/ML VIAL ONE (11:30)
[2018-03-28] MEDS ORDERED: LIDOCAINE HCL 2% 2 ML VIAL (20MG/ML) ONE (11:30)
[2018-03-28] MEDS ORDERED: PROPOFOL IV EMULSION 10 MG/ML 20 ML VIAL ONE (11:30)
[2018-03-28] MEDS ORDERED: ONDANSETRON INJ 2 MG/ML 2 ML VIAL ONE (11:30)
[2018-03-28] MEDS ORDERED: GLYCOPYRROLATE INJ 0.2 MG/ML VIAL ONE (11:31)
[2018-03-28] MEDS ORDERED: NEOSTIGMINE METHYLSULFATE 5 MG/5 ML SYR ONE ×2 (11:31→12:17)
[2018-03-28] MEDS ORDERED: KETOROLAC TROMETHAMINE 30 MG/ML VIAL ONE (12:17)
--- NOTE | 2018-03-28 12:19 | [facility] Post Operative Brief Note ---
Immediate Operative Summary Operative Date Mar 28, 2018. Pre-Operative Diagnosis Acute cholecystitis Post-Operative Diagnosis acute gangrenous cholecystitis Procedure(s) Performed Laparoscopic cholecystectomy with cholangiogram Surgeon Dr. Schulz Icu Tech Surgeon(s) Jeremy Felder PA-C Estimated Blood Loss 6cc Findings Consistent with Post-Op Diagnosis Acute, gangrenous cholecystitis. Cholangiogram normal. Specimens A. Gallbladder Drains None Anesthesia Type General Complication(s) none Disposition Accompanied Pt To Recover: no Disposition: Recovery Room / PACU
--- NOTE | 2018-03-28 12:22 | [facility] Operative Report ---
Operative Report Operative Date Mar 28, 2018. Pre-Operative Diagnosis Acute cholecystitis Post-Operative Diagnosis Acute, gangrenous cholecystitis Procedure(s) Performed Laparoscopic cholecystectomy with cholangiogram Surgeon Dr. Shculz Armament Installer Surgeon(s) Jeremy Felder PA-C Estimated Blood Loss 6cc Findings Window of safety obtained. Acute, gangrenous cholecystitis. Cholangiogram normal. Specimens A. Gallbladder Drains None Anesthesia General Complication(s) None Disposition Recovery Room / PACU Indications 53-year-old female admitted overnight with acute cholecystitis, plan for laparoscopic cholecystectomy with possible cholangiogram. The risks of the procedure were discussed, all questions were answered, and the patient agreed to proceed with surgery as planned. Description of Procedure The patient was properly identified, consented, and taken to the operating room where she was placed in the supine position. General endotracheal anesthesia was induced. SCDs and a safety belt were placed. Preoperative antibiotics were administered. The patient's abdomen was prepped and draped in the standard sterile fashion. A surgical timeout was performed and all parties were in agreement that this was the correct patient and procedure to be performed and we continued as planned. An incision was made superior and to the left of the umbilicus overlying the rectus muscle and the Veress needle was inserted. Saline drop test confirmed entry into the peritoneum. The abdomen was insufflated with carbon dioxide which the patient tolerated without incident. The abdomen was then entered using the Optiview technique and a 5 mm trocar. The laparoscope was inserted and no damage from initial trocar or Veress needle placement was noted, no gross abnormalities were noted within the 4 quadrants of the abdomen. An 11 mm port was placed in the subxiphoid position and two 5 mm ports were then placed in the right subcostal position. The patient was placed in reverse Trendelenburg position and rotated towards the left. The gallbladder was acutely inflamed and appeared to have gangrenous cholecystitis. There were some omental adhesions to the dome of the gallbladder which were taken down with blunt dissection. An aspiration needle was used to drain some thick bile from the gallbladder to aid in retraction. The dome of the gallbladder was retracted towards the left upper quadrant and the infundibulum was retracted toward the right lower quadrant revealing Calot' s triangle. Peritoneal attachments were taken down with electrocautery and blunt dissection. The cystic duct and artery were circumferentially dissected. A window of safety was obtained showing the cystic duct entering the gallbladder with no aberrant structures noted. The Gaston cholangiocatheter was then used to perform an intraoperative cholangiogram which showed no filling defects, and good filling of the duodenum and hepatic radicals with contrast. The cystic duct was triply clipped and divided. The cystic artery was doubly clipped and divided. The gallbladder was then lifted off the gallbladder fossa with electrocautery. The gallbladder was placed in an Endo Catch bag and removed through the subxiphoid port site. The right upper quadrant was irrigated and hemostasis was found to be good. 5 mm trochars were removed under direct visualization and the abdomen was allowed to collapse. The subxiphoid port site fascia was closed with 0 Vicryl suture. The wound was irrigated, and the skin of all ports was closed with 4-0 Monocryl subcuticular sutures. Dermabond was placed over the wounds. The patient was extubated in the operating room and taken to the PACU where she recovered without apparent incident. All sponge, instrument and needle counts were correct at the conclusion of the procedure. The patient tolerated the procedure well. The physician's assistant scientist was present and scrubbed for the entirety of the case and was essential in positioning the patient, prepping and draping, retraction and exposure, driving the laparoscope, removal of the gallbladder, closure of the incisions, and placement of the dressings. I attest to the content of the Intraoperative Record and any orders documented therein. Any exceptions are noted below.
[2018-03-28] MEDS ORDERED: MoRPHine SULFATE 4 MG/ML 1 ML CARP\\VIAL IV PRN (12:30)
[2018-03-28] MEDS ORDERED: OXYCODONE/ACETAMINOPHEN 5-325 TAB PO PRN (12:30)
--- NOTE | 2018-03-28 12:30 | DIAGNOSTIC IMAGING REPORT ---
CHOLANGIOGRAM O.R. HISTORY: Post cholecystectomy. FLUOROSCOPY TIME: 7 seconds. 2 images acquired.. FINDINGS: Fluoroscopy was provided for an intraoperative cholangiogram status post cholecystectomy. Contrast was injected through the cystic duct remnant. The common bile duct is normal in course and caliber. There are no filling defects seen within the common bile duct to suggest a retained stone. Contrast extends into the small bowel. Possible area of narrowing of the proximal left as well as right intrahepatic ducts. No significant filling defects. IMPRESSION: Fluoroscopy provided for an intraoperative cholangiogram status post cholecystectomy. No filling defects within the common bile duct.. Potential focal narrowing/stenosis of the proximal intrahepatic left and right bile ducts. The above report was generated using voice recognition software. It may contain grammatical, syntax or spelling errors. Electronically signed by: Kostas Prieto M.D. 03/28/2018 12:29 PM Dictated Date/Time: 03/28/2018 12:27 PM
[2018-03-28] MEDS: LABETALOL HCL IV 5 MG/ML 20ML IV PRN ×2 (13:26→13:32)
--- NOTE | 2018-03-28 13:39 | Anesthesiology Progress Note ---
Anesthesia Post Op Note Date & Time Mar 28, 2018 at 13:39 Vital Signs Pain Intensity: 0 Vital Signs Past 12 Hours Date Time Temp Pulse Resp B/P (MAP) Pulse Ox O2 Delivery O2 Flow Rate FiO2 03/28/18 13:35 65 16 155/100 100 Nasal Cannula 4 03/28/18 13:32 60 13 179/100 100 Nasal Cannula 4 03/28/18 13:30 61 15 181/101 100 Nasal Cannula 4 03/28/18 13:20 66 16 189/107 100 Nasal Cannula 4 03/28/18 13:10 68 16 168/94 100 Nasal Cannula 4 03/28/18 13:00 36.1 76 15 160/91 100 Nasal Cannula 4 03/28/18 12:50 81 17 131/81 100 Nasal Cannula 4 03/28/18 12:40 88 18 113/67 100 Oxymask 10 03/28/18 12:30 36.3 92 18 97/65 99 Oxymask 10 03/28/18 08:00 Room Air 03/28/18 06:39 36.9 71 16 155/93 (113) 96 Room Air 03/28/18 04:35 98 Room Air 03/28/18 03:17 36.9 64 16 145/90 (108) 97 Room Air Notes Mental Status: alert / awake / arousable, participated in evaluation Pt Amnestic to Procedure: Yes Nausea / Vomiting: adequately controlled Pain: adequately controlled Airway Patency, RR, SpO2: stable & adequate BP & HR: stable & adequate Hydration State: stable & adequate Anesthetic Complications: no major complications apparent
--- NOTE | 2018-03-28 16:25 | Progress Note ---
Subjective Date of Service: Mar 28, 2018. Subjective Pt evaluation today including: conversation w/ patient, conversation w/ family (), physical exam, lab review, conversation w/ business travel consultant, review of inpatient medication list Pain: less RUQ pain PO Intake: NPO Voiding: no voiding problems patient underwent laparoscopic cholecystectomy with cholangiogram found to have gangrenous gall bladder, cholangiogram was normal patient seen afterwards, was doing well, had less pain in RUQ still with pain on deep breath and cough, told her to request pain medications to be sure she could take deep breath WBC was 11k this morning, AST/ALT went up and bili up to 1.8 this AM prior to surgery Na up to 133 will repeat in the AM Problem List Medical Problems: (1) Epigastric abdominal pain Status: Acute (2) Hyponatremia Status: Acute Review of Systems Abdomen: + pain (RUQ, right shoulder) All Other Systems: Reviewed and Negative Medications Current Inpatient Medications Medications (Trade) Dose Ordered Sig/Raisa Route Start Time Stop Time Status Last Admin Dose Admin Acetaminophen (Tylenol Tab) 650 mg Q4H PRN PO 03/28/18 00:00 04/27/18 00:00 Al Hydrox/Mg Hydrox/Simethicone (Maalox Max Susp) 15 ml Q4H PRN PO 03/28/18 00:00 04/27/18 00:00 Magnesium Hydroxide (Milk Of Magnesia Susp) 30 ml Q12H PRN PO 03/28/18 00:00 04/27/18 00:00 Ondansetron HCl (Zofran Inj) 4 mg Q6H PRN IV 03/28/18 00:00 04/27/18 00:00 03/28/18 10:00 4 MG Polyethylene (Miralax Powder Packet) 17 gm DAILY PRN PO 03/28/18 00:00 04/27/18 00:00 Ciprofloxacin/ Dextrose 400 mg/ Prmx 200 ml @ 100 mls/hr Q12H IV 03/28/18 02:00 04/07/18 01:59 03/28/18 14:08 100 MLS/HR Levothyroxine Sodium (Synthroid Tab) 50 mcg DAILYBB PO 03/28/18 06:00 04/27/18 06:59 03/28/18 05:48 50 MCG Sodium Chloride 1,000 ml @ 120 mls/hr Q8H20M IV 03/28/18 02:00 04/27/18 01:59 03/28/18 03:15 120 MLS/HR Pantoprazole Sodium 40 mg/ Syringe 10 ml @ 5 mls/min DAILY@11 IV 03/28/18 02:00 04/27/18 01:59 03/28/18 10:06 5 MLS/MIN Cyclopentolate HCl (Cyclogyl 1% Oph Soln) 1 drops QID OPR 03/28/18 09:00 04/27/18 08:59 Neomycin/ Polymyxin/ Gramicidin (Neosporin Oph Soln) 1 drops QID OPR 03/28/18 09:00 04/27/18 08:59 03/28/18 07:55 1 DROPS Miscellaneous Information (Order Awaiting Action) 1 ea QS N/A 03/28/18 08:00 04/27/18 07:59 Non-Formulary Medication (Non-Formulary Patient'S Own Med) 1 ea TID PO 03/28/18 09:00 04/27/18 08:59 03/28/18 14:09 1 EA Non-Formulary Medication (Non-Formulary Patient'S Own Med) 1 ea Q2HWA OP 03/28/18 06:00 04/27/18 05:59 03/28/18 14:16 1 EA Morphine Sulfate (MoRPHine SULFATE INJ) 4 mg Q1H PRN IV 03/28/18 12:30 04/11/18 12:29 Oxycodone/ Acetaminophen (Percocet 5-325mg Tab) 1 tab Q4H PRN PO 03/28/18 12:30 04/11/18 12:29 Oxycodone/ Acetaminophen (Percocet 5-325mg Tab) 2 tab Q4H PRN PO 03/28/18 12:30 04/11/18 12:29 Objective Vital Signs Date Time Temp Pulse Resp B/P (MAP) Pulse Ox O2 Delivery O2 Flow Rate FiO2 03/28/18 14:18 36.7 65 20 170/108 (128) 99 Nasal Cannula 2.0 03/28/18 13:40 60 12 184/100 100 Nasal Cannula 4 03/28/18 13:35 65 16 155/100 100 Nasal Cannula 4 03/28/18 13:32 60 13 179/100 100 Nasal Cannula 4 03/28/18 13:30 61 15 181/101 100 Nasal Cannula 4 03/28/18 13:20 66 16 189/107 100 Nasal Cannula 4 03/28/18 13:10 68 16 168/94 100 Nasal Cannula 4 03/28/18 13:00 36.1 76 15 160/91 100 Nasal Cannula 4 03/28/18 12:50 81 17 131/81 100 Nasal Cannula 4 03/28/18 12:40 88 18 113/67 100 Oxymask 10 03/28/18 12:30 36.3 92 18 97/65 99 Oxymask 10 03/28/18 08:00 Room Air 03/28/18 06:39 36.9 71 16 155/93 (113) 96 Room Air 03/28/18 04:35 98 Room Air 03/28/18 03:17 36.9 64 16 145/90 (108) 97 Room Air 03/28/18 01:27 36.5 90 17 170/95 Room Air 03/28/18 01:12 74 15 167/109 98 03/28/18 00:01 74 15 167/109 98 03/27/18 23:04 172/97 03/27/18 23:00 83 20 03/27/18 22:31 181/100 03/27/18 22:30 77 98 03/27/18 22:01 159/105 03/27/18 22:00 81 99 03/27/18 21:31 164/101 03/27/18 21:30 71 97 03/27/18 21:01 183/102 03/27/18 21:00 76 97 03/27/18 20:52 172/101 03/27/18 19:46 69 16 198/96 94 Room Air 03/27/18 18:23 66 18 163/98 100 Room Air 03/27/18 17:24 65 18 189/104 100 Room Air 03/27/18 17:06 67 03/27/18 16:57 67 18 169/108 100 Room Air 03/27/18 16:55 100 Room Air 03/27/18 16:55 Room Air Physical Exam General Appearance: WD/WN, no apparent distress Eyes: normal inspection, EOMI, sclerae normal ENT: normal ENT inspection, hearing grossly normal, pharynx normal Neck: supple, no adenopathy, no JVD, trachea midline Respiratory/Chest: chest non-tender, lungs clear, normal breath sounds, no respiratory distress, no accessory muscle use Cardiovascular: regular rate, rhythm, no edema, no gallop, no JVD, no murmur Abdomen: soft, no organomegaly, + abnormal bowel sounds (hypoactive), + tenderness (RUQ) Extremities: normal range of motion, non-tender, normal inspection, no pedal edema, no calf tenderness, normal capillary refill, pelvis stable Neurologic/Psychiatric: lean coach II-XII nml as tested, no motor/sensory deficits, alert, normal mood/affect, oriented x 3 Skin: normal color, warm/dry, no rash Laboratory Results Last 24 Hours Test 03/27/18 16:45 03/27/18 19:30 03/28/18 04:06 03/28/18 06:00 White Blood Count 9.32 K/uL 11.53 K/uL Red Blood Count 4.62 M/uL 4.44 M/uL Hemoglobin 14.1 g/dL 13.4 g/dL Hematocrit 38.7 % 38.2 % Mean Corpuscular Volume 83.8 fL 86.0 fL Mean Corpuscular Hemoglobin 30.5 pg 30.2 pg Mean Corpuscular Hemoglobin Concent 36.4 g/dl 35.1 g/dl Platelet Count 255 K/uL 227 K/uL Mean Platelet Volume 10.2 fL 10.3 fL Neutrophils (%) (Auto) 82.0 % 81.8 % Lymphocytes (%) (Auto) 9.2 % 4.2 % Monocytes (%) (Auto) 7.8 % 12.7 % Eosinophils (%) (Auto) 0.5 % 0.1 % Basophils (%) (Auto) 0.2 % 0.2 % Neutrophils # (Auto) 7.63 K/uL 9.43 K/uL Lymphocytes # (Auto) 0.86 K/uL 0.49 K/uL Monocytes # (Auto) 0.73 K/uL 1.47 K/uL Eosinophils # (Auto) 0.05 K/uL 0.01 K/uL Basophils # (Auto) 0.02 K/uL 0.02 K/uL RDW Standard Deviation 39.1 fL 42.7 fL RDW Coefficient of Variation 13.0 % 13.6 % Immature Granulocyte % (Auto) 0.3 % 1.0 % Immature Granulocyte # (Auto) 0.03 K/uL 0.11 K/uL Prothrombin Time 10.2 SECONDS Prothromb Time International Ratio 1.0 Activated Partial Thromboplast Time 25.3 SECONDS Partial Thromboplastin Ratio 1.0 D-Dimer 380 ug/L FEU Sodium Level 127 mmol/L 133 mmol/L Potassium Level 3.8 mmol/L 3.9 mmol/L Chloride Level 93 mmol/L 101 mmol/L Carbon Dioxide Level 23 mmol/L 24 mmol/L Anion Gap 11.0 mmol/L 8.0 mmol/L Blood Urea Nitrogen 10 mg/dl 8 mg/dl Creatinine 1.11 mg/dl 1.09 mg/dl Est Creatinine Clear Calc Drug Dose 53.6 ml/min 54.4 ml/min Estimated GFR () 64.7 66.2 Estimated GFR (Non- 55.9 57.1 BUN/Creatinine Ratio 8.8 7.6 Random Glucose 115 mg/dl 138 mg/dl Osmolality 269 mOsm/kg Calcium Level 9.8 mg/dl 8.8 mg/dl Total Bilirubin 0.9 mg/dl 1.8 mg/dl Direct Bilirubin 0.2 mg/dl Aspartate Amino Transf (AST/SGOT) 32 U/L 184 U/L Alanine Aminotransferase (ALT/SGPT) 51 U/L 235 U/L Alkaline Phosphatase 47 U/L 81 U/L Total Creatine Kinase 77 U/L Troponin I < 0.015 ng/ml < 0.015 ng/ml Total Protein 7.7 gm/dl 6.9 gm/dl Albumin 4.2 gm/dl 3.5 gm/dl Lipase 56 U/L Urine Osmolality 424 mOms/kg Globulin 3.4 gm/dl Albumin/Globulin Ratio 1.0 Hepatitis C Antibody NEG Assessment and Plan 53 year old female with a PMH of Hypothyroidism that presented to [facility] with abdominal pain and was found to have acute cholecystitis Acute cholecystitis, gangrenous gall bladder - s/p lap yovanny on 03/28, tolerated well, no complications - bili and AST/ALT up slightly this AM, repeat tomorrow, cholangiogram was normal - educated patient on pain control, want her to take deep breaths, be able to cough - encouraged incentive spirometry - continue Cipro - continue Zofran Hypovolemic Hyponatremia - likely secondary to dehydration from nausea and vomiting - Na up to 133 from 127 Hypothyroidism - continue levothyroxine R eye amoeba infection - continue eye drops and miltefosine - will need to send miltefosine down to pharmacy as we don't carry it here DVT prophylaxis - SCD Full Code
[2018-03-28] MEDS ORDERED: NURSING VERBAL MED ORDER ONE ×2 (19:15→19:30)
[2018-03-28] MEDS ORDERED: IBUPROFEN 200 MG TAB PO PRN (19:45)
[2018-03-28] MEDS ORDERED: BISACODYL 5 MG TABEC PO PRN (19:45)
[2018-03-28] MEDS: CLONAZEPAM 0.5 MG TAB PO SCH (20:41)
[2018-03-28] MEDS: OXYCODONE/ACETAMINOPHEN 5-325 TAB PO PRN (20:42)
[2018-03-28] MEDS: ONDANSETRON 4 MG TAB PO SCH (20:43)
[2018-03-28] MEDS: [UNRECOGNIZED DRUG - OTHER] OP SCH (22:46)
[2018-03-28] MEDS: [UNRECOGNIZED DRUG - OTHER] OP SCH (22:46)
[2018-03-29] MEDS: SODIUM CHLORIDE 0.9% 1000ML 1,000 ML IV SCH ×2 (03:27→14:30)
[2018-03-29] MEDS: CIPROFLOXACIN / D5W 400 MG in PREMIXED IN D5W 200 ML IV SCH ×2 (03:27→14:27)
[2018-03-29 03:38] VITALS: BP 152/84; PULSE 62; TEMP 36.9; O2SAT 97
[2018-03-29] MEDS: [UNRECOGNIZED DRUG - OTHER] OP SCH ×6 (05:53→16:04)
[2018-03-29] MEDS: [UNRECOGNIZED DRUG - OTHER] OP SCH ×6 (05:53→16:06)
[2018-03-29] MEDS: LEVOTHYROXINE 50 MCG TAB PO SCH (05:54)
--- NOTE | 2018-03-29 06:08 | Surgery Progress Note ---
Surgery Progress Note Date of Service Mar 29, 2018. Subjective Post OP Day: 1 + feeling well, + pain controlled, + diet (Clears), No bowel movement, No flatus Patient reports she felt mildly nauseated last night. She also reports 1 episode of "some liquid coming up into her mouth" during this time but denies any vomiting. She also reports her throat has been sore since surgery likely due to perioperative intubation. Objective Vital Signs: Date Time Temp Pulse Resp B/P (MAP) Pulse Ox O2 Delivery O2 Flow Rate FiO2 03/29/18 03:38 36.9 62 18 152/84 (106) 97 Room Air 03/28/18 23:24 36.8 64 18 128/79 (95) 96 Room Air 03/28/18 20:45 Room Air 03/28/18 20:06 36.8 58 18 179/104 (129) 96 Room Air 03/28/18 14:18 36.7 65 20 170/108 (128) 99 Nasal Cannula 2.0 03/28/18 13:40 60 12 184/100 100 Nasal Cannula 4 03/28/18 13:35 65 16 155/100 100 Nasal Cannula 4 03/28/18 13:32 60 13 179/100 100 Nasal Cannula 4 03/28/18 13:30 61 15 181/101 100 Nasal Cannula 4 03/28/18 13:20 66 16 189/107 100 Nasal Cannula 4 03/28/18 13:10 68 16 168/94 100 Nasal Cannula 4 03/28/18 13:00 36.1 76 15 160/91 100 Nasal Cannula 4 03/28/18 12:50 81 17 131/81 100 Nasal Cannula 4 03/28/18 12:40 88 18 113/67 100 Oxymask 10 03/28/18 12:30 36.3 92 18 97/65 99 Oxymask 10 03/28/18 08:00 Room Air 03/28/18 06:39 36.9 71 16 155/93 (113) 96 Room Air General Appearance: WD/WN, no apparent distress, + pertinent finding (Patient is visibly shivering but denies fevers and feels the hospital is just cold. ) Head: normocephalic, atraumatic Respiratory/Chest: no respiratory distress Abdomen: soft, no organomegaly, + distended (mild), + tenderness (Incisional) Incision(s): clean, dry, intact, no erythema, no drainage Laboratory Results: Results Past 24 Hours Test 03/29/18 05:27 Range/Units Assessment & Plan POD #1 s/p lap yovanny w/ cholangiogram Cholangiogram reviewed - no filling defects identified. Pain controlled on PO analgesics. Abdomen soft, mildly distended w/ incision tenderness (expected). Urinating okay. WBC 11.7 this am. afebrile Tolerating clears. 1 episode of nausea which she relates to her medication. Keep clears for now - likely advance later today. Will discuss findings with Dr. Schulz. Please contact with questions or concerns.
[2018-03-29 06:24] LABS: BASO % 0.1 %; BASO ABS # 0.01 K/uL (0-0.2); EOS % 0.2 %; EOS ABS # 0.02 K/uL (0-0.5); HEMATOCRIT 33.1 % (37-47); HEMOGLOBIN 11.5 g/dL (12.0-16.0); IG# 0.09 K/uL (0.00-0.02); LYMPH % 8.3 %; LYMPH ABS # 0.97 K/uL (1.2-3.4); MEAN CELL VOLUME 87.6 fL (80-100); MEAN CORPUSCULAR HEMOGLOBIN 30.4 pg (25-34); MEAN CORPUSCULAR HGB CONC 34.7 g/dl (32-36); MEAN PLATELET VOLUME 10.3 fL (7.4-10.4); MONO % 9.7 %; MONO ABS # 1.14 K/uL (0.11-0.59); NEUT % 80.9 %; NEUT ABS # 9.47 K/uL (1.4-6.5); PLATELET COUNT 164 K/uL (130-400); RED CELL DISTRIBUTION WIDTH CV 13.9 % (11.5-14.5); RED CELL DISTRIBUTION WIDTH SD 44.8 fL (36.4-46.3)
[2018-03-29 06:59] LABS: ALBUMIN 2.8 gm/dl (3.4-5.0); CALCIUM 8.5 mg/dl (8.5-10.1); CREATININE 0.98 mg/dl (0.60-1.20); POTASSIUM 3.5 mmol/L (3.5-5.1)
[2018-03-29 07:01] LABS: TOTAL PROTEIN 5.8 gm/dl (6.4-8.2)
[2018-03-29 07:24] VITALS: BP 160/87; PULSE 66; TEMP 36.8; O2SAT 97
--- NOTE | 2018-03-29 08:10 | Anesthesiology Progress Note ---
Anesthesia Post Op Note Date & Time Mar 29, 2018 at 08:09 Vital Signs Vital Signs Past 12 Hours Date Time Temp Pulse Resp B/P (MAP) Pulse Ox O2 Delivery O2 Flow Rate FiO2 03/29/18 07:24 36.8 66 18 160/87 (111) 97 Room Air 03/29/18 03:38 36.9 62 18 152/84 (106) 97 Room Air 03/28/18 23:24 36.8 64 18 128/79 (95) 96 Room Air 03/28/18 20:45 Room Air Notes Mental Status: alert / awake / arousable, participated in evaluation Pt Amnestic to Procedure: Yes Nausea / Vomiting: adequately controlled Pain: adequately controlled Airway Patency, RR, SpO2: stable & adequate BP & HR: stable & adequate Hydration State: stable & adequate Anesthetic Complications: no major complications apparent
[2018-03-29] MEDS: ONDANSETRON 4 MG TAB PO SCH (08:17)
[2018-03-29] MEDS: [UNRECOGNIZED DRUG - OTHER] PO SCH ×2 (08:17→11:53)
[2018-03-29] MEDS: PANTOprazole INJ 40 MG in SYRINGE 0 ML IV SCH (08:18)
[2018-03-29] MEDS: NEOMYCIN/POLYMYXIN/GRAMICIDIN 10 ML BTL OPR SCH ×2 (08:18→11:55)
[2018-03-29] MEDS: CLONAZEPAM 0.5 MG TAB PO SCH (08:22)
[2018-03-29] MEDS: OXYCODONE/ACETAMINOPHEN 5-325 TAB PO PRN ×2 (08:22→14:29)
[2018-03-29 11:42] VITALS: BP 151/91; PULSE 65; TEMP 36.7; O2SAT 98
[2018-03-29 15:28] VITALS: BP 151/91; PULSE 65; TEMP 36.7; O2SAT 98
[2018-03-29] MEDS ORDERED: MRLP17X PO (15:35)
[2018-03-29] MEDS ORDERED: DRGTP12 TD (15:35)
[2018-03-29] MEDS ORDERED: HYDR-5688 PO (15:35)
[2018-03-29] MEDS ORDERED: ONDA4TAB10 SL (15:35)
[2018-03-29] MEDS ORDERED: KLN5 PO (15:35)
[2018-03-29] MEDS ORDERED: CIPR-304 PO (15:35)
[2018-03-29 15:37] VITALS: BP 152/85; PULSE 75; TEMP 36.8; O2SAT 96
--- NOTE | 2018-03-29 15:47 | Discharge Instructions ---
Discharge Instructions Date of Service Mar 29, 2018. Admission Reason for Admission: Acute Cholecystitis Discharge Discharge Diagnosis / Problem: Cholecystitis, gangrenous Discharge Goals Goal(s): Improve function, Improve disease control Activity Recommendations Activity Limitations: per Instructions/Follow-up section Lifting Limitations: no more than 5 pounds (until follow up visit) Exercise/Sports Limitations: as tolerated May Resume Sexual Activity: when tolerated Shower/Bathe: keep incision dry (do not soak in tub, you may shower) Driving or Machine Use: no driving while on narcotics (Fentanyl, Hydrocodone) . Instructions / Follow-Up Instructions / Follow-Up Medications: - FENTANYL PATCH: as we discussed, reduce the dose to 12mcg, patch is changed every 3 days, gave you five patches, hopefully you can be weaned off of the fentanyl in two weeks - HYDROCODONE: use as needed for pain - MIRALAX: take a dose every day until you have a bowel movement, can then use as needed for constipation, take with full glass of water - CIPROFLOXACIN: antibiotic for gangrenous cholecystitis, take twice a day for 5 more days - ZOFRAN: as needed for nausea - KLONOPIN: unsure of dosing or frequency, refer to whatever you were taking prior to admission Gangrenous cholecystitis, s/p cholecystectomy with cholangiogram recovering well follow a low fat diet, advance slowly as tolerated should expect abdominal pain to improve in next week follow up with Dr. Schulz in two weeks [phone] Amoebic eye infection: make new appointment as soon as possible to discuss treatment and pain control Current Hospital Diet Patient's current hospital diet: Regular Diet Discharge Diet Recommended Diet: Low Fat Diet Procedures Procedures Performed: Laparoscopic cholecystectomy with cholangiogram Pending Studies Studies pending at discharge: no Medical Emergencies . Who to Call and When: Medical Emergencies: If at any time you feel your situation is an emergency, please call 911 immediately. . Non-Emergent Contact Non-Emergency issues call your: Mechanical Adjuster, Surgeon Call Non-Emergent contact if: you have a fever, temperature is above 101, your pain is not controlled, your pain is worsening, your pain is concerning you, wound has increased drainage, wound has increased redness, wound has increased pain, you have any medication questions Dr. Schulz [phone] . . "Provider Documentation" section prepared by Erik Randolph. . [place] Drug Monitoring Program Search Results: no issues identified
--- NOTE | 2018-03-30 07:31 | Discharge Summary ---
Discharge Summary Date of Service Mar 29, 2018. Discharge Summary Admission Date: Mar 28, 2018 at 00:07 Discharge Date: Mar 29, 2018 Discharge Disposition: Home Principal Diagnosis: Acute cholecystitis, gangrenous gall bladder Problems/Secondary Diagnoses: Right eye amoebic infection Immunizations: Have You Had Influenza Vaccine: Unknown History of Tetanus Vaccine?: Unknown History of Pneumococcal: Unknown History of Hepatitis B Vaccine: Unknown Procedures: Laparoscopic cholecystectomy with cholangiogram Consultations: General surgery Medication Reconciliation New Medications: Ciprofloxacin HCl (Ciprofloxacin) 500 Mg Tab 500 MG PO BID for 5 Days, #10 TABS 0 Refills Fentanyl (Fentanyl) 12 Mcg Tdsy 1 PATCH TD Q72H for 15 Days, #5 PATCH 0 Refills Ondasetron Odt (Zofran Odt) 4 Mg Tab 4 MG SL Q6H for Nausea, #20 TAB Clonazepam (Clonazepam) 0.5 Mg Tab 0.5 MG PO BID PRN for Anxiety/Agitation, #60 TAB 0 Refills Polyethylene (Miralax) 17 Gm Pow 17 GM PO DAILY PRN for Constipation, #1 BTL 1 Refill Continued Medications: Chlorhexidine Gluconate (Peridex Oral Soln) 480 Ml Soln 1 DROP MT Q2H Cyclopentolate Hcl (Cyclopentolate Hcl) 1 % Tami 1 DROP OPR QID Cyclosporine (Ophth) (Restasis) 0.05 % Emu 1 DROP OPL BID Fish Oil (Bruning-3) 1 Ea Cap 1 CAP PO QAM Hydrocodone/Acetaminophen 5MG/325MG ([place]ia 5MG/325MG) Tab 1-2 TABLETS PO Q4-6HOURS PRN for Pain, #30 TABS 0 Refills (This prescription has been renewed) PRN PAIN Levothyroxine Sodium (Levothyroxine Sodium) 50 Mcg Tab 1 TAB PO QAM Oiwzhukd-Uoccos-Phyrxwjb (Neomycin/Polymyxin/Gramic) 1 Tami Tami 1 DROP OPR QID [Miltefosine] () 50 MG PO TID [Propamidine 1% Eye ] () 1 DROP OPR Q2H [Vitamin B12 Tabs] () 1 TAB PO QAM [Vitamin D3 Tab] () 1 TAB PO QAM Discontinued Medications: Bisacodyl (Dulcolax) 5 Mg Tab 2 TAB PO UD Ibuprofen (Advil) 200 Mg Tab 200 MG PO UD Ibuprofen Tab (Advil) 200 Mg Tab 200 MG PO UD Discharge Exam Patient doing well, abdominal pain controlled with hydrocodone. Tolerated regular diet for lunch. No nausea at all. Right eye with increased pain, attributed to the fact that she is not wearing her Fentanyl patch. Took some time to go over her current medication list, she was not entirely sure what she was taking. Discussed decreasing her Fentanyl dose, she agreed with the plan. She admitted that when on the 25mcg patch at home prior to her surgery, she was not requiring much Hydrocodone. Review of Systems: Constitutional: No fever, No chills, No sweats, No weight loss, No weakness , No fatigue, No problem reported Eyes: + eye pain (right eye, ongoing issue), No worsening of vision, No redness, No discharge ENT: No hearing loss, No unusual epistaxis, No nasal symptoms, No sore throat, No tinnitus, No dental problems, No trouble swallowing, No problem reported Respiratory: No cough, No sputum, No wheezing, No shortness of breath, No dyspnea on exertion, No dyspnea at rest, No hemoptysis, No problem reported Cardiovascular: No chest pain, No orthopnea, No PND, No edema, No claudication, No palpitations, No problem reported Abdomen: + pain (mild, incisional), + constipation (last BM was 5 days prior ), No nausea, No vomiting, No diarrhea, No GI bleeding Musculoskeletal: No joint pain, No muscle pain, No swelling, No calf pain, No problem reported Genitourinary - Female: No dysuria, No urinary frequency, No urinary urgency , No urinary incontinence Neurologic: No memory loss, No paralysis, No weakness, No numbness/tingling , No vertigo, No balance problems, No problem reported Psychiatric: No depression symptoms, No anhedonism, No anxiety, No insomnia , No substance abuse, No problem reported Endocrine: No fatigue, No excessive thirst, No excessive urination, No problem reported Hematologic / Lymphatic: No abnormal bleeding/bruising, No clotting problems , No swollen lymph nodes, No night sweats, No problem reported Integumentary: No rash, No itch, No new/changing skin lesions, No color change, No bleeding, No problem reported Physical Exam: General Appearance: WD/WN, no apparent distress Eyes: EOMI, + pertinent finding (righ eye swollen, tender) ENT: normal ENT inspection, hearing grossly normal, pharynx normal Neck: supple, no adenopathy, no JVD, trachea midline Respiratory/Chest: chest non-tender, lungs clear, normal breath sounds, no respiratory distress, no accessory muscle use Cardiovascular: regular rate, rhythm, no edema, no gallop, no JVD, no murmur , normal peripheral pulses Abdomen / GI: normal bowel sounds, non tender, soft, no organomegaly Extremities: normal inspection, no calf tenderness, normal capillary refill , no pedal edema, normal range of motion, pelvis stable Neurologic/Psychiatric: 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, no motor/sensory deficits , alert, normal mood/affect, normal reflexes, oriented x 3 Skin: normal color, warm/dry, no rash Hospital Course 53 year old female with a PMH of Hypothyroidism that presented to [facility] with abdominal pain and was found to have acute cholecystitis Acute cholecystitis, gangrenous gall bladder - s/p lap yovanny on 03/28, tolerated well, no complications - tolerating regular diet, no nausea, pain controlled on just Hydrocodone - bili and AST/ALT trending down on day of admission, cholangiogram was normal intraoperatively - continue Cipro for 5 more days on discharge - continue Zofran ODT - pain control with Fentanyl patch and Hydrocodone - follow up with Dr. Schulz in 2 weeks, surgical discharge instructions given Hypovolemic Hyponatremia - likely secondary to dehydration from nausea and vomiting - resolved, Na 137 on discharge Hypothyroidism - continue levothyroxine R eye amoeba infection - continue eye drops and miltefosine - plans to follow up with eye doctor in [place] this week - decreased pain control to Fentanyl 12mcg patch and Hydrocodone PRN DVT prophylaxis - SCD Full Code Total Time Spent: Greater than 30 minutes This includes examination of the patient, discharge planning, medication reconciliation, and communication with other providers. Discharge Instructions Please refer to the electronic Patient Visit Report (Discharge Instructions) for additional information. Follow-Up Dr. Schulz in two weeks Additional Copies To Joey Schulz DO; Colton Leonard M.D.
== END 2018-03-29 16:38 | disposition home or self-care (01) | DRG 418 ==
LOC: C.EDB 15:12 → C.2T 03-28 00:07 → ENRESERV 03-28 00:41
PROVIDERS: ADMIT Hospitalist; ATTEND Internal Medicine
PROC: 0FT44ZZ Resection of Gallbladder, Percutaneous Endoscopic Approach (ICD-10-PCS; principal; 2018-03-28 12:10)
PROC: BF10YZZ Fluoroscopy of Bile Ducts using Other Contrast (ICD-10-PCS; principal; 2018-03-28 12:10)
DX: K81.0 Acute cholecystitis (principal); E87.1 Hypo-osmolality and hyponatremia; J45.909 Unspecified asthma, uncomplicated; E11.9 Type 2 diabetes mellitus without complications; K21.9 Gastro-esophageal reflux disease without esophagitis; E03.9 Hypothyroidism, unspecified; B60 Other protozoal diseases, not elsewhere classified

== ENCOUNTER 2024-01-27 07:37 | Observation (INO) ==
--- NOTE | 2023-12-27 11:34 | PAT Medication Instructions ---
Medication Instructions Date of Service December 27, 2023 Home Medications cholecalciferol (vitamin D3) 50 mcg (2,000 unit) tablet (Vitamin D3) 2,000 unit PO QAM cyanocobalamin (vitamin B-12) 1,000 mcg tablet 1,000 mcg PO QAM multivitamin 1 tab PO QAM Autologous Serum Eye Drops 30% 1 drp OPB QID PRN Dry Eyes moxifloxacin 1 drp ophthalmic (eye) UD prednisolone acetate 1 % eye drops,suspension 1 drp ophthalmic (eye) QAM valacyclovir 1 gram tablet 1,000 mg PO QAM Hylonight 1 applic topical HS calcium 500 mg tablet 500 mg PO QAM levothyroxine 75 mcg tablet 75 mcg PO QAM Continue as directed Autologous Serum Eye Drops 30% 1 drp OPB QID PRN Dry Eyes (if needed) moxifloxacin 1 drp ophthalmic (eye) UD prednisolone acetate 1 % eye drops,suspension 1 drp ophthalmic (eye) QAM STOP taking 24 hours before surgery Hylonight 1 applic topical HS DO NOT take the morning of surgery cholecalciferol (vitamin D3) 50 mcg (2,000 unit) tablet (Vitamin D3) 2,000 unit PO QAM cyanocobalamin (vitamin B-12) 1,000 mcg tablet 1,000 mcg PO QAM multivitamin 1 tab PO QAM calcium 500 mg tablet 500 mg PO QAM Take morning of surgery With a small sip of water, OTHERWISE NOTHING TO EAT OR DRINK AFTER MIDNIGHT: valacyclovir 1 gram tablet 1,000 mg PO QAM levothyroxine 75 mcg tablet 75 mcg PO QAM Other Notes If you have any questions please call us at [phone] or [phone] or [phone] or [phone]
--- NOTE | 2024-01-03 15:04 | Anesthesiology Consultation ---
Date of Service January 03, 2024 Assessment & Plan (1) Encounter for pre-operative examination: Chart Review Chart Review: Acceptable Risk for Surgery and Patient seen in Pre Admission Testing - Patient is NOT an ideal OPJ candidate (currently 23 hour obs) Per PAT appt on 01/03/24, no recent illness/disease exposures, illness related symptoms, or recent illness/disease positive tests. Will leave to surgeon's discretion if preop Covid testing needed Last seen by cardiology 10/20/2023 = Murmurstableecho ordered. Atypical chest painresolved with indigestion medication and does not return. Likely GI etiology. Negative high-sensitivity troponin x 2 in August 2023. Elevated BPrecommend home monitoring. If elevated at homecall office. Diet and exercise recommended. Family history of CADrisk factor modification recommended. No anginal pain. Stable dyspnea on exertion. Unremarkable stress echo in 2015 and no new symptoms to suggest further ischemic evaluation at this time. Dyspnea on exertionappears euvolemic. Chronic and stable. Underwent stress echo in 2015 for same symptoms and noted good exercise tolerance and negative stress echo/EKG. No further ischemic evaluation necessary at this time. Follow-up in 6 months. Left knee scope, partial medial meniscectomy 05/10/22= Done under [facility] with LMA #4. LMA x 1 attempt Teaching & Discussion Pre-Anesthesia Teaching/Discussion Notes: Instructed NPO after midnight before surgery,except medications with 15 cc of water. Medication instructions provided according to the PAT guidelines. History Surgery Operation Date: 01/27/24 07:00 Proposed Procedures p Left Total Knee Arthroplasty - Jessee Lund, Height/Weight Height: 5 ft Weight: 88.9 kg Allergies Allergy/AdvReac Type Severity Reaction Status Date / Time amoxicillin Allergy Mild RASH Verified 12/22/23 15:02 Medications Home Medications Medication Instructions Recorded Confirmed Last Taken cholecalciferol (vitamin D3) 50 2,000 unit PO QAM 10/31/18 12/22/23 09/09/23 mcg (2,000 unit) tablet (Vitamin D3) cyanocobalamin (vitamin B-12) 1,000 mcg PO QAM 10/31/18 12/22/23 09/09/23 1,000 mcg tablet multivitamin 1 tab PO QAM 10/31/18 12/22/23 09/09/23 Autologous Serum Eye Drops 30% 1 drp OPB QID PRN Dry Eyes 05/04/22 12/22/23 Unknown moxifloxacin 1 drp ophthalmic (eye) BID 10/07/22 01/03/24 09/09/23 prednisolone acetate 1 % eye 1 drp ophthalmic (eye) QAM 09/09/23 12/22/23 09/09/23 drops,suspension valacyclovir 1 gram tablet 1,000 mg PO QAM 09/09/23 12/22/23 09/09/23 Hylonight 1 applic topical HS 12/22/23 12/22/23 Unknown calcium 500 mg tablet 500 mg PO QAM 12/22/23 12/22/23 Unknown levothyroxine 75 mcg tablet 75 mcg PO QAM 12/22/23 12/22/23 Unknown Past Medical History Medical History (Updated 01/03/24 @ 16:18 by Apple Nails PA-C) Anxiety no current meds Dyspnea on exertion Chronic and stable symptom- stress ECHO 2015 unremarkable; appears euvolemic - no further ischemic evaluation necessary per cardio records 09/2023 Eye disorder - 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 bolden, ct Hypothyroidism Low iron chronic x years Migraine hx-stopped w/menopause Murmur ECHO ordered by cardio- done 11/2023- mild MR No significant murmur noted at PAT visit 01/03/24 Exercise / Class Metabolic Activity III < 4 Walking/Shop/Light housework (one flight of stairs- no chest pain, minimal SOB ) Past Family History Family History Grandmother (Maternal) Family history of diabetes mellitus Mother Family history of reaction to anesthesia NAUSEA Father Myocardial infarction Uncle Myocardial infarction Denies family history of Ovarian cancer Prostate cancer Breast cancer Colorectal cancer Uterine cancer Past Surgical History Surgical History (Updated 01/03/24 @ 10:08 by Apple Nails PA-C) History of appendectomy History of carpal tunnel release RT/LT History of section X 1 History of cholecystectomy History of colonoscopy History of dilatation and curettage D&E History of tooth extraction History of trabeculectomy right eye x3 Hx of arthroscopy of left knee Hx of right cataract extraction Nausea and vomiting after administration of anesthetic agent "1x before gallbladder sx-started given her meds prior to the sx and she threw up" Status post corneal transplant Transplanted cornea right eye Past Anesthesia History No Hx of Anesthesia Complications (with exception to remote hx of PONV (with yovanny) - no issues with subsequent surgeries ) and No Family Hx of Anesthesia Complications (with exception to mother- PONV ) History of PONV No Hx of Motion Sickness and History of PONV (remote hx x 1 ) Social History Smoking Status: Never smoker Do You Dip or Chew Tobacco: No Hx Alcohol Use: Yes Alcohol type: wine and other alcohol intake frequency: holidays/special occasions only Hx Substance Use: Yes substance use type: former substance user and marijuana Last Used Substance Other:: remote hx or Review of Systems - Hx of snoring - occ witnessed apnea - hx of sleep study many years ago- no SHUBHAM at that time Patient denies chest pain, shortness of breath, reflux, cough, wheezing, palpitations. No hx of seizures, stroke, MS. No hx of blood clots or blood transfusions Physical Exam Vital Signs VITALS BP 149/85 P 62 TEMP 98.1 SP02 98% RESP 16 Constitutional no acute distress ENMT Mouth: no TMJ clicking Thyromental Distance: < 3.5 Finger Breadths (3.0) Mallampati Class: III Crowns to side teeth Neck neck extension not limited Respiratory normal respiratory effort; no respiratory distress Auscultation: lungs clear to auscultation bilaterally; no wheezes Cardiovascular Rate/Rhythm: regular rate and regular rhythm Heart Sounds: no murmur Vessels: no carotid bruit Musculoskeletal Spine: no pain with cervical ROM Extremities: extremities normal to inspection Psychiatric Orientation: alert Lab Results Anesthesia Preop Results Results Anesthesia Widget: WBC 4.89 K/ul (4.8-10.8) 01/03/24 Hgb 13.1 g/dl (12.0-16.0) 01/03/24 Hct 39.2 % (37.0-47.0) 01/03/24 Plt 212 K/uL (130-400) 01/03/24 Na 138 mmol/L (136-145) 01/03/24 K 4.0 mmol/L (3.5-5.1) 01/03/24 Cl 106 mmol/L (98-107) 01/03/24 CO2 28 mmol/L (21-32) 01/03/24 BUN 22 mg/dl (6-23) 01/03/24 Creat 0.73 mg/dl (0.6-1.2) 01/03/24 Glucose Level 92 mg/dl (70-99(Fasting)) 01/03/24 PT 10.8 Seconds (9.0-12.0) 01/03/24 PTT 27 Seconds (21-31) 01/03/24 INR 1.0 (0.9-1.1) 01/03/24 Blood Type O Positive 01/03/24 Antibody Screen NEGATIVE 01/03/24 Testing Electrocardiogram Date: 09/09/23 Findings: + NSR @ (69bpm) Normal EKG per cardio Chest X-Ray Date: 09/09/23 FINDINGS: No pneumothorax. No pleural effusions. The lungs are clear. The heart is normal in size. There is a mildly tortuous thoracic aorta. No acute fractures. IMPRESSION: No acute process. Echocardiogram Date: 11/30/23 EF: 55-60% LV Function: normal RWMA: + none Other Findings: + LVH (mild/concentric ); no diastolic dysfunction Valvular Disease: + MR (mild) Normal estimated RVSP. No significant change from prior study on 03/12/2016
[~2024-01-27 07:37] MED LIST changes: +BUPIVACAINE 0.5 % 5 MG/1 ML PF 10ML VIAL ONE; -MELO15TA3 PO; +ROPIVACAINE 0.5% 5 MG/ML 30 ML VIAL ONE
--- NOTE | 2024-01-27 08:17 | History & Physical Bridge Note ---
Date of Service January 27, 2024 History & Physical Bridge Note I have examined the patient, reviewed the History & Physical and in the interval since the performance of the History & Physical I have noted the following changes of clinical significance: no changes noted
[2024-01-27] MEDS: LR 500ML BOLUS, THEN 15ML/HR IV SCH (08:20)
[2024-01-27] MEDS: LR 60ML/HR IV SCH (08:20)
[2024-01-27] MEDS: ACETAMINOPHEN 500 MG TAB PO SCH ×2 (08:21→13:17)
[2024-01-27] MEDS: FAMOTIDINE 20 MG TAB PO SCH (08:22)
[2024-01-27] MEDS: dexAMETHasone**PF** 10 MG/ML VIAL IV SCH (08:22)
[2024-01-27] MEDS: GABAPENTIN 600 MG DOSE PO SCH (08:22)
[2024-01-27] MEDS ORDERED: MIDAZOLAM HCL 1 MG/ML 2ML VIAL ONE ×2 (08:39→09:43)
[2024-01-27] MEDS ORDERED: fentaNYL citrate PF 100 MCG/2 ML VIAL ONE (08:39)
[2024-01-27] MEDS ORDERED: LIDOCAINE 2% 2 ML VIAL/AMP(20MG/ML) INFIL ONE (08:47)
[2024-01-27] MEDS ORDERED: PROPOFOL IV EMULSION 10 MG/ML 20 ML VIAL IV ONE (08:47)
[2024-01-27] MEDS ORDERED: ONDANSETRON INJ 2 MG/ML 2 ML VIAL IV PRN ×2 (08:52→12:50)
[2024-01-27] MEDS ORDERED: ePHEDrine sulfate 50 MG/ML AMP IV PRN (08:52)
[2024-01-27] MEDS ORDERED: ATROPINE SULFATE 0.1 MG/ML 10ML SYR IV PRN (08:52)
[2024-01-27] MEDS ORDERED: fentaNYL citrate PF 100 MCG/2 ML VIAL IV PRN (08:52)
[2024-01-27] MEDS: TRANEXAMIC ACID 1,000 MG **IV Pre-op IV SCH (09:02)
[2024-01-27] MEDS: ceFAZolin 2000MG 2,000 MG/15 ML SYR IV SCH ×2 (09:40→17:28)
[2024-01-27] MEDS: ORTHO JOINT ANESTHETIC ONE (10:18)
[2024-01-27] MEDS: TRANEXAMIC ACID 1,000 MG **IV Intra-op IV SCH (10:55)
--- NOTE | 2024-01-27 10:56 | Operative Report ---
PG Post Operative Report Pre & Post Diagnosis Operation Date: 01/27/24 09:00 Pre-Op Diagnosis: Degenerative Joint Disease Left Knee Post-Op Diagnosis: Degenerative Joint Disease Left Knee I identified the patient and participated in the time-out.: Yes Procedure Operation Date: 01/27/24 09:00 Actual Procedures p Left Total Knee Arthroplasty(Left) - Jessee Lund DO Surgeon Jessee Lund DO Agricultural Equipment Design Engineer Jessee Rivero PA-C Estimated Blood Loss 30 Findings Consistent with Post-Op Diagnosis Specimens Left femoral and tibial bone Description of Procedure Implants used: I used a Damion Persona total knee arthroplasty system with a size 5 standard PS femur, C tibia, 28 oval patella, and a size 12 CPS polyethylene bearing. All components were cemented in place with Biomet cement. [facility] arrived [facility] for the above procedure. She was seen in the preoperative holding area and the operative extremity was identified and signed. She was given a preoperative antibiotic, TXA, a spinal anesthetic and an adductor nerve block. She was taken back to the operating room and laid on the table in supine position. She was given basic sedation. The operative knee was then prepped and draped in sterile fashion. A timeout was done, and the patient and the operative extremity was properly identified. A midline incision was made directly over the patella. Dissection was taken down to the extensor mechanism. A medial parapatellar arthrotomy was used. The medial retinaculum was released and the fat pad was mostly excised. The knee was flexed and the ACL, PCL, and meniscus were removed. A drill was sent down the center of the femoral canal followed by an intramedullary daniella. Off that daniella a distal femoral cutting block was placed. 9 mm was resected off the distal femur at 5 of valgus. A posterior referencing AP sizing guide was then placed on the distal femur. The femur measured to be a size 5. 2 drill holes were placed in 3 of external rotation. A 4-in-1 cutting block was then impacted into place. Anterior, posterior, and chamfer cuts were then made. The proximal tibia was then exposed. An external tibial alignment guide was placed. A tibial cut guide was then anchored in place and the proximal tibia was then resected. The posterior aspect of the knee was then opened up and any additional meniscus fragments and osteophytes were removed. The tibia measured to be a size C. The tibial plate was then placed in the appropriate rotation and the tibia was drilled and punched. Trial components were then placed. I used a size 12 CPS polyethylene insert. The knee was brought through a full range of motion and felt to be stable. The peg holes for the femoral component were then drilled. The patella was then everted and 9 mm was resected off the posterior aspect of the patella. The patella measured to be a size 28 oval. 3 peg holes were then drilled. A trial patella was placed. The knee was once again brought through a full range of motion and felt to be stable. Trial components were then removed. The surrounding soft tissues were injected with 100 cc of an orthopedic pain control cocktail. All components were then cemented into place with Biomet cement. The final polyethylene insert was then snapped into place. Once cement was dry the tourniquet was deflated. Hemostasis was obtained. A dilute betadyne lavage was then done for 3 minutes. The joint was then irrigated with normal saline solution. The medial parapatellar arthrotomy was then closed with #1 Vicryl suture. The skin was closed with 2-0 Vicryl, 3-0V lock suture, and roxanne. A soft compressive dressing was placed. She was then transferred to a hospital bed and taken to the postanesthesia care unit in stable condition. She tolerated the procedure well. Jessee Rivero PA-C, was present for the entire procedure. He was critical for patient positioning, prepping, draping, retraction exposure, wound closure and application of sterile dressing. I attest to the content of the Intraoperative Record and any orders documented therein. Any exceptions are noted below.
--- NOTE | 2024-01-27 12:16 | Anesthesiology Progress Note ---
Date of Service January 27, 2024 Anesthesia Post Procedure Vital Signs Vital Signs: Temp Pulse Pulse Resp BP Pulse Ox O2 Del Method 01/27/24 12:05 36.3 C L 59 L 17 127/90 95 Room Air 01/27/24 11:55 61 15 124/81 96 Room Air 01/27/24 11:45 57 L 14 118/74 96 Room Air 01/27/24 11:35 60 19 113/70 99 Oxymask 01/27/24 11:25 64 14 112/65 99 Oxymask 01/27/24 11:18 36.0 C L 68 14 99/63 L 96 Oxymask 01/27/24 08:05 36.5 C 62 18 141/91 H 96 Room Air O2 Flow Rate 01/27/24 12:05 01/27/24 11:55 01/27/24 11:45 01/27/24 11:35 5 01/27/24 11:25 10 01/27/24 11:18 10 01/27/24 08:05 Transfer of Care Handoff Completed per policy Notes Mental Status: alert / awake / arousable Patient Amnestic to Procedure: Yes Nausea / Vomiting: adequately controlled Pain: adequately controlled Airway Patency, RR, SpO2: stable & adequate BP & HR: stable & adequate Hydration State: stable & adequate Neuraxial Anesthesia: was administered and sensory block is resolving Anesthetic Complications: no major complications apparent and Pt Satisfied with anesthetic care
--- NOTE | 2024-01-27 12:32 | XRay Report ---
XR knee LT 1 or 2V routine HISTORY: 58 years-old Female Surgical Post Op left knee arthroplasty COMPARISON: None TECHNIQUE: 2 views of the left knee FINDINGS: Total joint arthroplasty with patellar resurfacing. Anterior midline skin roxanne with expected posto perative soft tissue swelling and deep tissue air. No acute fracture, dislocation or unexpected opaqu e foreign body. IMPRESSION: Total joint arthroplasty with expected postoperative changes. ACT 112: Negative or not required by law. The above report was generated using voice recognition software. It may contain grammatical, syntax o r spelling errors. Electronically signed by: Pablo Del Cid M.D. 01/27/2024 12:30 PM
[2024-01-27] MEDS ORDERED: ARTIFICIAL TEARS OP PRN (12:50)
[2024-01-27] MEDS ORDERED: MAGNESIUM HYDROXIDE SUSP 30 ML UDC PO PRN (12:50)
[2024-01-27] MEDS ORDERED: HYDROmorphone INJ 0.5 MG/0.5 ML SYR IV PRN (12:50)
[2024-01-27] MEDS ORDERED: NALOXONE HCL 0.4 MG/1 ML VIAL/CARP IV PRN (12:50)
[2024-01-27] MEDS ORDERED: METOCLOPRAMIDE HCL INJ 5 MG/ML 2 ML VIAL IV PRN (12:50)
[2024-01-27] MEDS ORDERED: bisacodyL 10 MG SUPP PR PRN (12:50)
[2024-01-27] MEDS ORDERED: AUTOLOGOUS SERUM OPB PRN (12:50)
[2024-01-27] MEDS: ROPIV 0.5% 246mg, Ketorolac 30mg, EPINEPHrine 0.5mg in NSS INFIL SCH (12:54)
[2024-01-27] MEDS: SODIUM CHLORIDE 0.9% 1,000 ML IV SCH (13:01)
[2024-01-27] MEDS: KETOROLAC 30 MG/ML VIAL IV SCH (13:05)
[2024-01-27] MEDS: oxyCODONE HCL IR 5 MG TAB (IMMEDIATE RELEASE) PO PRN (16:30)
[2024-01-27] MEDS ORDERED: [UNRECOGNIZED DRUG - OTHER] TOP SCH (21:00)
[2024-01-27] MEDS: SENNA 8.6 MG TAB PO SCH (21:51)
[2024-01-27] MEDS: DOCUSATE SODIUM 100 MG CAP PO SCH (21:51)
[2024-01-27] MEDS: MOXIFLOXACIN HCL 0.5% OP SOLN 3 ML BTL OPR SCH (22:05)
[2024-01-27] MEDS: ASPIRIN 81 MG ECTAB PO SCH (22:07)
--- OUTSIDE RECORDS SUMMARY | 2024-01-27 23:13 | External Medical Summary | Summary of Care ---
Author Name Unknown Organization [facility] Address [address] [place] [address] Phone [phone] Care Team Providers Care Principal Consulting Engineer Name Role Phone Kostas Agosto MD Primary Care Provider Reason for Visit * Reason Comments Follow Up Encounter Details Date Type Department Care Team (Late st Contact Info) Description 01/26/2024 2:45 PM EDT Office Visit [address] [address] Bernadette Plummer MD [address] [place] [id number] Secondary angle-closure glaucoma of right eye, mild stage* Allergies Active Allergy Reactions Criticality Noted Date Comments Amoxicillin Rash Codeine 01/01/2022 "L. H." see scanned chronic problem list documented as of this encounter (statuses as of 01/26/2024) Medications Medication Sig Dispensed Refills Start Date End Date Status levothyroxine (LEVOXYL) 50 MCG Tablet Take 1.5 Tablets by mouth in the morning. 0 06/30/2018 Active Cyanocobalamin 1000 MCG Oral Capsule Take by mouth. Acti ve Vitamin D3 25 MCG Oral Tablet Take by mouth . Active Multivitamin Women 50+ Oral Tablet Take by mouth . Acti ve Refresh 1.4-0.6 % Ophthalmic Solution (polyvinyl alcohol-povidone PF) 1 Drop as needed. Active Serum Tears ophthalmic solution Instill into the right eye 4 times a day. Active Cyclobenzaprine HCl 10 MG Oral Tablet (Flexeril) Take 1 Tablet by mouth every 8 hours as needed. 03/12/2023 Active valACYclovir HCl 1 GM Oral Tablet (Valtrex) Take 1 Tablet by mouth in the morning and 1 Tablet at noon and 1 Tablet before bedtime. 02/13/2023 Active prednisoLONE Acetate 1 % Ophthalmic Suspension (Pred Forte) Instill 1 Drop into the right eye every 2 hours. 10 mL 3 08/04/2023 Active Additional Information Patient taking differently:1 Drop Right eye Q2H,ONE TIME DAILY RIGHT EYE, Reported on 11/10/2023 Moxifloxacin HCl 0.5 % Ophthalmic Solution (Vigamox) Instill 1 Drop into the right eye 4 times a day. 3 mL 08/04/2023 Active predniSONE 20 MG Oral Tablet (Deltasone) Take 1 Tablet by mouth in the morning. 30 Tablet 08/16/2023 Active Additional Information Patient taking differently: 10 mgOral Daily(AM), Reported on 08/23/2023 documented as of this encounter (statuses as of 01/26/2024) Active Problems Problem Noted Date Diagnosed Date Secondary angle-closure glaucoma of right eye, m ild stage 09/24/2022 History of corneal transplant 09/24/2022 documented as of this encounter (statuses as of 01/26/2024) Immunizations Name Administration Dates Next Due SARS-COV-2 (COVID-19) Vaccin e Unspecified 03/09/2022,06/14/2021,11/15/2020,2020 Seasonal Influenza Virus Vac cine, Unspecified Formulation 10/31/2019,08/28/2016 Seasonal Influenza, Quadrivalent, ID 06/15/2020 Seasonal Influenza, Split, I IV3, With Preserve, Inj 06/15/2020,10/31/2019,06/21/2018,2017,08/28/2016,08/20/2013,07/17/2012 TDAP (age 10 and older)(Boostrix) 06/21/2021,08/2000 TDAP, Age 7 and older, IM (Adacel) 03/22/2011 Zoster Vaccine Recombinant (Shingrix) 12/24/2021 ,10/08/2021 documented as of this encounter Social History Tobacco Use Types Packs/Day Years Used Date Smoking Tobacco: Never Smokeless Tobacco: Never Alcohol Use Standard Drinks/Week Comments Yes 0 (1 standard drink = 0.6 oz pur e alcohol) Socially AUDIT-C Answer Date Recorded Frequency of Alcohol Consumption Monthly or less 07/27/2018 Average Number of Drinks Not on file 018 Frequency of Binge Drinking Not on file 01/2018 Sex and Gender Information Value Date Recorded Sex Assigned at Not on file Gender Identity Not on file Sexual Orientation Not on file Job Start Date Occupation Industry Not on file Not on file Not on file documented as of this encounter Progress Notes * Bernadette Plummer MD - 01/26/2024 1:33 PM EDT 01/26/24 Here for IOP check. Vision Stable Bleb: diffusely elevated nasal bleb, Beatriz negative Cornea: d-folds, diffuse PEEs, PK, MCE AC: formed, hazy Iris/lens: dilated Fundus: hazy view, flat Assessment/Plan: # s/p trabeculectomy with mitomycin C, right eye Bleb elevated, Beatriz negative Looks great # S/p PKP OD Has appt with Dr Cruz in a few weeks No follow-ups on file. FILI Lin scribing for and in the presence of Dr. Bernadette Rush MD. 01/26/2024. This note is prepared by FILI Lin acting as a scribe for me. The scribe's documentation has been prepared under my direction and personally reviewed by me in its entirety. I confirm that the note above accurately reflects all work, treatment, procedures and medical decision making performed by me. Bernadette Rush MD Final eye medication list RIGHT EYE White or pink cap steroid (PredForte): 1 time a day (per Dr. Cruz) Vigamox 2 times a day (per Dr. Cruz) Valtrex 1 g daily Serum tears 4 times a day documented in this encounter Nursing Notes * Dayan Lai COA - 01/26/2024 2:59 PM EDT Magnolia Gavin presents for IOP check. Last Visit: 11/10/2023 (in office), Visit date not found (telemedicine) She currently states no change in vision. Current Ophthalmic Medications: Moxi OD BID, Pred OD QD, and serum tears OD QID Vision and IOP by air tonometry if done can be found in the ophth exam. documented in this encounter Plan of Treatment Health Maintenance Due Date Last Done Comments Lipid Panel 1963 Depression Screening 1975 HIV Screening 1978 Hepatitis C Screening 1981 TSH 1981 Pap Smear 02/08/1984 Cervical Cancer Screening 1993 HPV/Co-Test 1993 Mammogram 2003 Cologuard 02/08/2008 Colonoscopy 02/08/2008 Colorectal Cancer Screening 02/08/2008 Fecal Occult Blood Test 02/08/2008 Sigmoidoscopy 02/08/2008 COVID-19 Vaccine ( season) 2023 07/30/2022, 03/09/2022, 06/14/2021, Additional history exists Influenza Vaccine (FLU shot) (Season Ended) 2024 06/15/2020, 06/15/2020, 10/31/2019, Additional history exists Diabetes Screening 06/22/2026 06/22/2023, 06/02/2023 DTaP,Tdap,and Td Vaccines (4 - Td or Tdap) 06/21/2031 06/21/2021, 03/22/2011, 11/20/2000 Zoster Vaccines Completed 12/24/2021, 10/08/2021 GARDASIL-HPV IMMUNIZATION SERIES Aged Out No longer eligible based on patient's age to complete this topic Hepatitis B Aged Out No longer eligi ble based on patient's age to complete this topic MENINGOCOCCAL (MENACTRA/MENVEO) Aged Out No longer eligible based on patient's age to complete this topic Pneumococcal Vaccine: Pediatrics (0 to 5 Years) and At-Risk Patients (6 to 64 Years) Aged Out No longer eligible based on patient's age to complete this topic documented as of this encounter Medical Devices Not on filedocumented as of this encounter Visit Diagnoses Diagnosis Secondary angle-closure glaucoma of right eye, mild stage- Primary documented in this encounter Advance Directives * Full Code (Latest Code Status on File) Date Activated Date Inactivated Comments 08/03/2023 10:45 AM 08/03/2023 5:23 PM This orde r reflects the patients wishes and were consensually agreed upon. Question Answer Comments Discussion of Advance Directives occurred with: Patient * Full Code Date Activated Date Inactivated Comments 07/20/2022 11:02 AM 07/20/2022 7:53 PM This orde r reflects the patients wishes and were consensually agreed upon. Question Answer Comments Discussion of Advance Direct macy occurred with: Not Discussed due to patient's condition Care Teams Principal Consulting Engineer Relationship Specialty Start Date End Date Kostas Agosto MD [address] [place] [address] PCP - General Family Medicine 12/24/21 documented as of this encounter
[2024-01-28] MEDS: LEVOTHYROXINE SODIUM 75 MCG TABLET PO SCH (06:12)
--- NOTE | 2024-01-28 06:49 | Orthopedic Progress Note ---
Date of Service January 28, 2024 Assessment & Plan (1) Status post left knee replacement: Overall she is doing very well. She is not having much pain in the left knee. She will be seen by physical therapy today for ambulation and range of motion exercises. The nursing staff can change her dressing after physical therapy. She is on aspirin for DVT prophylaxis. She can be discharged home later today. She will follow-up orthopedics 2 weeks. Subjective Magnolia was seen and examined at bedside this morning. Overall she is doing well. She is not having much pain in the left knee. She has been up and ambulating to the bathroom. She has no complaints.. Review of Systems All systems reviewed & are unremarkable except as noted in HPI & below. Physical Exam On physical examination of left knee, the dressing is clean and dry. Her leg is out full extension. She has active dorsiflexion plantarflexion of her left ankle.. Results & Data Results & Data Laboratory Results . Diagnostic Findings Postoperative x-rays of the left knee show the prosthesis to be in anatomic alignment without any evidence of fracture complication, or loosening.. PG Care Time/CCT Total # of Minutes Spent Total Time Spent with Patient: Total time spent is greater than 50% in coordination of care (as documented) at patient's floor/unit and/or counseling patient: Coding Level of Care Code 66793 Post Operative Follow-Up Diagnoses Status post left knee replacement Z96.652
--- NOTE | 2024-01-28 06:50 | Discharge Summary ---
Date of Service January 28, 2024 Principal Diagnosis Same as "Discharge Diagnosis" noted below under Discharge Instructions. Discharge Exam On physical examination of left knee, the dressing is clean and dry. Her leg is out full extension. She has active dorsiflexion plantarflexion of her left ankle.. Discharge Data Procedures Performed Operation Date: 01/27/24 09:00 Actual Procedures p Left Total Knee Arthroplasty(Left) - Jessee Lund DO Ordered Studies 01/27/24 05:00 US - OR guided needle placemen Routine Hospital Course (1) Status post left knee replacement: On January 27, 2024 Magnolia arrived at [facility] and underwent a left knee replacement without complication. She had a spinal anesthetic. Postoperatively she was started on aspirin for DVT prophylaxis and transferred to the general orthopedic floors. Her hospital course was uneventful. On postop day #1, her vital signs were stable and her pain was well-controlled. She was able to participate well with physical therapy doing ambulation and range of motion exercises. She was then discharged home. She will follow-up with orthopedics in 2 weeks. PG Care Time/CCT Total # of Minutes Spent Total Time Spent with Patient: Total time spent is greater than 50% in coordination of care (as documented) at patient's floor/unit and/or counseling patient: Discharge Plan Discharge Items Patient Disposition: Home - Self-Care Reason For Visit: Degenerative Joint Disease Left Knee Discharge Diagnosis: Left knee replacement Activity: Per Instructions section Non-emergency contact: Surgeon Call non-emergency contact if: your wound has increased redness and your wound has increased drainage Follow-up/Referrals: Kostas Agosto MD [Primary Care Provider] - Diet: Regular Addtl Attending Provider Instructions: Activity and Therapy Recommendations: * If you are using [facility] then therapy will be provided at your home until they feel you have accomplished all of your goals. * If you are using [facility] then Physical Therapy will be provided until they feel you are ready to start Outpatient Physical Therapy. * If you are not using home therapy then Outpatient Physical Therapy should start about 3-5 days from your day of surgery. Therapy will last about 6-10 weeks * It is important not to put a pillow under your knee when you are relaxing or sleeping. It is just as important to make sure you are getting your knee perfectly straight as it is to regain your knee bend. * You were shown a series of exercises in the hospital. Do these exercises three times each day including the exercises you were shown in physical therapy. * Get up and walk several times each day. For the first four weeks, try not to stand or walk for more than one hour at a time. If you do stand or walk for more than one hour, you will not hurt anything, but your leg will likely swell. * As you feel comfortable, you may change from the walker or crutches to a cane and then to independent walking. Medications: * Narcotic You will likely be sent home from the hospital with a prescription for the narcotic pain medication that worked best throughout your stay. * Cefadroxil -take the antibiotic twice a day for 10 days to help prevent infection. * Aspirin Most patients will be required to take Aspirin 81mg twice a day for 6 weeks after surgery. This is obtained [id number] and a prescription is not necessary. * Other medications may be prescribed for specific circumstances. If you have any questions, please call the office at . * Resume previous home medications unless otherwise instructed TEDs/Elastic Stockings: The white elastic stockings help limit swelling and prevent blood clots from forming in your legs.~ The more you wear them, the more they work. Wear them for six weeks. Dressing Care: The dressing can be changed after physical therapy on postop day #1. Daily dry dressing changes for a few days, especially if the incision is still draining some. If the incision is not draining then you may leave the roxanne open to air. If there is a little bit of drainage or if the roxanne are getting stuck on your clothing then cover the incision with a dry dressing. The roxanne will be removed at your 2 week follow-up appointment. Showering: You may shower 5 days from the day of surgery as long as the incision is no longer draining. You may shower with the roxanne exposed. Let soapy water run over the roxanne and pat them dry. Do not scrub or soak the incision. Things To Watch For: * Drainage from the incision site that occurs more than one week after your surgery. * Increased redness at the incision site. * Fever above 102 degrees Fahrenheit. * Unusual chest pain or shortness of breath. * Call [facility] at with any of the above problems Follow-Up Visit: Follow-up with Dr. Lund's PA (Jessee Rivero) 2-3 weeks after your day of surgery. He will remove your roxanne and answer any questions. If you have any additional questions or concerns, Dr Lund is usually in the office at the same time and will be available An appointment was probably scheduled when you signed-up for surgery in the office. If you have any questions call Office Instructions: More detailed instructions as well as Frequently Asked Questions were provided in a folder by our office when you signed-up for surgery. Please review these instructions when you get home. If you have any further questions or concerns, please feel free to call the office at [phone] Pending Studies at Discharge: No Stand-Alone Forms: My InExchange, Smoking Cessation Medications and DC Order Prescriptions: New aspirin 81 mg Tablet,Delayed Release (Dr/Ec) 81 mg PO BID 42 Days Qty: 84 0RF oxycodone 5 mg Tablet 5 mg PO Q4H PRN (Reason: pain) Qty: 30 0RF cefadroxil 500 mg capsule 500 mg PO BID 10 Days Qty: 20 0RF Continued moxifloxacin 1 drp ophthalmic (eye) BID Rx Instructions: right eye only multivitamin Tablet 1 tab PO QAM cyanocobalamin (vitamin B-12) 1,000 mcg Tablet 1,000 mcg PO QAM cholecalciferol (vitamin D3) [Vitamin D3] 2,000 unit Tablet 2,000 unit PO QAM Autologous Serum Eye Drops 30% 1 drp OPB QID PRN (Reason: Dry Eyes) valacyclovir 1 gram tablet 1,000 mg PO QAM Patient Comments: per pt she only takes once daily Rx Instructions: 1 gram prednisolone acetate 1 % drops,suspension 1 drp ophthalmic (eye) QAM calcium 500 mg Tablet 500 mg PO QAM levothyroxine 75 mcg tablet 75 mcg PO QAM Hylonight 1 applic topical HS Patient Comments: OTC med Rx Instructions: right eye only Refresh Dry Eye Therapy 1 drp ophthalmic (eye) DAILY PRN (Reason: Dry Eyes) Discharge Orders: Discharge Order (Routine); Ordered 01/28/24 Ordered By: Jessee Lund Admission Data Admit Date/Time: 01/27/24 11:29 Attending Provider: Jessee Lund Admit Provider: Jessee Lund Primary Care Provider: Kostas Agosto
[2024-01-28] MEDS: MULTIVITAMIN TAB PO SCH (07:51)
[2024-01-28] MEDS: prednisoLONE acetate 1% OP SUSP 5 ML BTL OP SCH (07:51)
[2024-01-28] MEDS: dexAMETHasone 4 MG TAB PO SCH (07:51)
[2024-01-28] MEDS: valACYclovir HCL 500 MG TABLET PO SCH (07:51)
== END 2024-01-28 13:33 | disposition home or self-care (01) ==
LOC: ASU 07:37 → 3E 07:37